=== PATIENT | male | born 1970 | race African-American/Black ===

== ENCOUNTER 2018-07-03 09:13 | Inpatient (IN) ==
[~2018-07-03 09:13] MED LIST: NS 2,000 ML ONE
[2018-07-03] MEDS ORDERED: NS 1,000 ML IV ONE (09:17)
[2018-07-03] MEDS ORDERED: SODIUM CHLORIDE 0.9% INJ ONE (09:18)
[2018-07-03] MEDS ORDERED: PROTONIX IV ONE (09:18)
[2018-07-03] MEDS ORDERED: PROTONIX 80 MG in NS 80 ML IV ONE (09:30)
[2018-07-03] MEDS ORDERED: PROTONIX 80 MG in NS 80 ML IV SCH (09:30)
[2018-07-03] MEDS ORDERED: SANDOSTATIN IV ONE (09:31)
--- NOTE | 2018-07-03 09:35 | PROVIDER DOCUMENTATION ---
This chart was entered by Wendy Jensen Scribe, acting as scribe for Christina Kincaid MD. HPI-Abdominal Pain/GI Problem - General Stated Complaint: VOMITING BLOOD Time Seen by Provider: 07/03/18 09:14 Source: patient Allergies/Adverse Reactions: Patient Allergies Allergy/AdvReac Type Severity Reaction Status Date / Time No Known Allergies Allergy Verified 07/03/18 09:26 Home Medications: Home Medication List Medication Instructions Recorded Confirmed Last Taken Type Unobtainable [Home Meds 07/03/18 07/03/18 Unknown History Unobtainable] - History of Present Illness-ABD Nature of Presenting Problems: Patient is a 48 year old male who presents to the ED via EMS for vomiting blood. Patient states he woke this morning feeling nauseated then vomited red blood 4 times. Patient states he does drink ETOH. Patient denies history of hepatitis. EMS states patient's friend stated patient had seizure like activity this mo rning. Patient denies history of seizures. Abdominal Pain Onset Location: reports: other (patient denies abdominal pain) Pain Radiation: reports: no radiation Quality of Pain: reports: none Severity in ED: reports: mild Onset/Duration: reports: this morning Timing: reports: still present Activities at Onset: reports: light activity Modifying Factors: improves with: nothing Associated Symptoms: reports: nausea, vomiting (red blood) # of Vomiting Episodes: 4 Emesis Description: reports: red blood Bruising or Bleeding Gums?: No Similar Symptoms Previously?: No Recently seen or treated by another doctor?: No Review of Systems - Adult - REVIEW OF SYSTEMS - ADULT Constitutional: reports: no symptoms reported Eyes: reports: no symptoms reported Ears, Nose, Mouth & Throat: reports: no symptoms reported Cardiovascular: reports: no symptoms reported Respiratory: reports: no symptoms reported Gastrointestinal: reports: hematemesis, nausea. denies: abdominal pain, diarrhea Genitourinary: reports: no symptoms reported Musculoskeletal: reports: no symptoms reported Integumentary: reports: no symptoms reported Neurological: reports: no symptoms reported Psychiatric: reports: no symptoms reported Endocrine: reports: no symptoms reported Hematologic/Lymphatic: reports: no symptoms reported Allergic/Immunologic: reports: no symptoms reported All Other Systems: Reviewed and Negative Past History - Adult - PAST MEDICAL HISTORY-ADULT Review of Records: reports: Nursing Assessment Review, Medications Reviewed, Social history reviewed & non-contributory. Major Childhood Illnesses: reports: denies history Cardiovascular: reports: HTN Respiratory: reports: denies history Gastrointestinal: reports: denies history Obstetrical/Gynecological: reports: denies history Genitourinary: reports: denies history Musculoskeletal: reports: denies history Neurological: reports: denies history Psychiatric: reports: denies history Endocrine/Immune: reports: denies history Other Conditions: reports: denies history - PRIOR SURGERIES/PROCEDURES Surgical/Procedure History: reports: none - IMMUNIZATION STATUS Childhood Immunizations: See Nurse Assessment Flu Vaccine: See Nurse Assessment - FAMILY HISTORY Family History: reviewed, not pertinent - SOCIAL HISTORY Smoking: denies Substance Use: alcohol Physical Exam-General - PHYSICAL EXAM-ADULT Initial Vital Signs Reviewed: Yes - CONSTITUTIONAL General Appearance: alert, mild distress - EYES Eyes: PERRL/EOMI, scleral icterus - HEAD, EARS, NOSE, MOUTH & THROAT HENMT: other (dry mucus membranes, no blood in mouth or posterior oropharynx) - NECK Neck: non-tender, full range of motion, supple - RESPIRATORY Respiratory: lungs clear, normal breath sounds, no pleuratic chest pain, no respiratory distress, no accessory muscle use - CARDIOVASCULAR Cardiovascular: normal peripheral pulses, regular rate, rhythm, no murmur - LYMPHATIC Lymphatic: no adenopathy - MUSCULOSKELETAL Extremity: normal range of motion, non-tender Peripheral Pulses: radial (R): 2+, radial (L): 2+ - SKIN Integumentary: normal turgor, warm/dry, jaundice - NEUROLOGIC Neurologic: grossly normal, no motor/sensory deficits - PSYCHIATRIC Psych/Mental Status: normal mood/affect, normal thought content, normal thought process, oriented x 3 Progress - PLAN OF CARE/RESULTS Progress/Plan/Lab Results: Vital Signs - 8 hr 07/03/18 09:13 Pulse Rate 107 H Respiratory Rate 22 Blood Pressure 134/56 O2 Sat by Pulse Oximetry 100 Orders Category Date Time Status Saline Loc NOW Care 07/03/18 09:17 Active CHEST-PORTABLE [RAD] Stat Exams 07/03/18 09:16 Ordered ALCOHOL BLOOD Stat Lab 07/03/18 09:15 Uncollected AMMONIA [CHEM] Stat Lab 07/03/18 09:16 Uncollected CBC WITH ELECTRONIC DIFF [HEME] Stat Lab 07/03/18 09:15 Uncollected COMPREHENSIVE METABOLIC PANEL [CHEM] Stat Lab 07/03/18 09:15 Uncollected HIV GENOTYPE [ARORA] Stat Lab 07/03/18 09:22 Uncollected LIPASE [CHEM] Stat Lab 07/03/18 09:16 Uncollected PT [PROTIME WITH INR] [COAG] Stat Lab 07/03/18 09:15 Uncollected TYPE & SCREEN [BBK] Stat Lab 07/03/18 09:[address] W/POSS RFLX CULT [URINALYSIS] Stat Lab 07/03/18 09:16 Uncollected URINE DRUG SCREEN PL Stat Lab 07/03/18 09:16 Uncollected 0.9% Sodium Chloride Inj [Ns] 1,000 ml Med 07/03/18 09:13 Discontinued .ROUTE As directed 0.9% Sodium Chloride Inj [Ns] 1,000 ml Med 07/03/18 09:17 Active IV 999 mls/hr Pantoprazole [Protonix] Med 07/03/18 09:18 Discontinued 40 mg IV NOW ONE Sodium Chloride 0.9% Med 07/03/18 09:18 Discontinued 10 ml INJ NOW ONE 0931 d/w Tere re HPI exam all work up pending, currently vss, rec drips, IVF, get started and send to [facility], he will be available for hospitalist admit 0958 pt vomiting BRB amount pending 1005 Mehta released pt, call out to hospitalist at [facility], spoke marli Rashid, says hospitalist at needs to see pt and call them, I am concerned about delays for transfer Mehta in the room, has put in transfer orders 1052 SBP in 80s asked RN to squeeze in 1 L NS rapidly, BB getting 2 units PRBC Result Diagrams: 07/03/18 09:40 07/03/18 09:40 - REASSESSMENT Reassessment #1 Time Reassessed: 09:56 Status: other (patient started vomiting red blood.) - XRAY 1 XRAY Study: Chest Impression: See EMR Report ( EXAM: CHEST-PORTABLE - 07/03/2018 HISTORY: vomiting blood TECHNIQUE: Portable chest COMPARISON: None. FINDINGS: Heart size is normal. The lungs appear clear. There is no pleural effusion or pneumothorax identified. IMPRESSION: No evidence of acute disease. Electronically signed by Richard Velazquez 07/03/2018 9:46 AM 07/03/18945 Interpreting Physician: Richard Velazquez MD Dictated Date/Time: 07/03/1846 cc: Christina Kincaid MD;) - CONSULTS/PCP/HOSPITALIST Notification #1 *Consult/PCP/Hospitalist*: Dr. Mehta Time Discussed: 10:02 Reason/Comments: Dr. Kincaid consulted with Dr. Mehta about patient. Consult Disposition: Will see in ED #2 Consult: Dr. Garcia Time Discussed: 09:31 Reason/Comments: Dr. Kincaid consulted with Dr. Garcia about patient. Departure - Departure Date of Disposition Decision: 07/03/18 Time of Disposition Decision: 10:08 DIAGNOSIS: Vomiting blood, Jaundice Disposition: ADMITTED INPATIENT 09 Certified Medical Emergency: Emergent Condition: Critical Referrals and Follow-Ups: None,PCP [Primary Care Provider] - - Critical Care Note This patient required my direct & personal management of CC.: Yes Total Time (mins): 40 Critical Care Statement: This patient required my direct personal management to treat or rule out processes, the absence of which, could potentiallly result in sudden, clinically significant life or limb threatening deterioration. Attestation - Physician/ GISELA Attestation The physician spent face to face time with patient:: Yes Advanced Practice Provider documentation review:: Supervising physician onsite and consulted in the evaluation and care of this patient. The physician did have a face to face encounter with the patient. This chart was documented by the indicated scribe, (Wendy Jensen Scribe) and accurately reflects the services I performed and decisions made by me, Christina Kincaid MD, as attested by the provider's signature.
--- NOTE | 2018-07-03 09:49 | Diag Imaging Result Doc PS360 ---
EXAM: CHEST-PORTABLE - 07/03/2018 HISTORY: vomiting blood TECHNIQUE: Portable chest COMPARISON: None. FINDINGS: Heart size is normal. The lungs appear clear. There is no pleural effusion or pneumothorax identified. IMPRESSION: No evidence of acute disease. Electronically signed by Richard Velazquez 07/03/2018 9:46 AM
[2018-07-03 10:08] LABS: ALBUMIN 2.6 g/dL (3.5-5.0); CALCIUM 7.8 mg/dL (8.8-10.2); CREATININE 1.3 mg/dL (0.7-1.2); POTASSIUM 3.2 mmol/L (3.5-5.1); TOTAL BILIRUBIN 8.9 mg/dL (0.20-1.00); TOTAL PROTEIN 6.4 g/dL (6.3-8.3)
[2018-07-03 10:11] LABS: BASO# 0.03 X1000 (0.0-0.2); BASO% 0.2 % (0.0-0.8); EOS# 0.01 X1000 (0.0-0.7); EOS% 0.1 % (0.0-10.0); HEMATOCRIT 20.3 % (42.0-52.0); HEMOGLOBIN 7.1 g/dL (14.0-18.0); IMM GRAN# 0.08 X1000 (0.0-0.04); IMM GRAN% 0.5 % (0.0-0.5); LYMPH# 1.72 X1000 (1.2-3.4); LYMPH% 10.8 % (20.5-51.1); MCH 32.9 PG (27-31); MONO# 0.75 X1000 (0.11-0.59); MONO% 4.7 % (1.7-9.3); MPV 11.5 FL (7.4-10.4); NEUT# 13.29 X1000 (1.4-6.5); NEUT% 83.7 % (42.2-75.2); PLT 75 X1000 (130-400); RBC 2.16 XMIL (4.7-6.1); RDW 17.8 % (11.5-14.5); WBC 15.88 X1000 (4.8-10.8)
[2018-07-03] MEDS ORDERED: SANDOSTATIN 500 MICROGM in D5W 100 ML IV SCH (10:15)
[2018-07-03] MEDS ORDERED: M.V.I.-12 10 ML, FOLIC ACID 1 MG, MAGNESIUM SULFATE 1 GM, THIAMINE 100 MG in NS 1,000 ML IV SCH (10:15)
[2018-07-03] MEDS ORDERED: NS 1,000 ML IV SCH (10:15)
[2018-07-03 10:24] LABS: INR 1.97; PROTIME 23.4 Seconds (11.0-16.0)
[2018-07-03] MEDS ORDERED: ROCEPHIN 1 GM in NS 50 ML IV ONE (10:26)
[2018-07-03] MEDS ORDERED: LR 1,000 ML IV ONE (10:26)
[2018-07-03] MEDS ORDERED: ATIVAN IV PRN (10:38)
[2018-07-03] MEDS ORDERED: ZOFRAN IV ONE (10:53)
--- NOTE | 2018-07-03 11:36 | HISTORY AND PHYSICAL ---
ADDENDUM: This is a history and physical addendum. The patient seen and examined by me [id number], all the laboratory, vital signs and images were reviewed. He presented with upper GI bleed, he has been vomiting blood, it looks like he is an alcoholic, I am not sure if he has also a history of hepatitis. I will ask for hepatitis panel. Apparently, also this patient had some seizurelike activity this morning, but the patient denies any history of seizure. At this moment, this patient is completely alert and oriented x3. He is following commands, he is having generalized shakiness but he states that he is cold. Since this patient has been having hematemesis, we need to transfer this patient to [facility] so he can be evaluated and scoped by Gastroenterology Department. He has been getting Protonix drip, IV fluids. We asked for 2 units of blood as well. Vital signs are stable except for mild tachycardia. He is not complaining of abdominal pain at this moment but at the beginning, he was complaining of right upper quadrant pain. He has jaundice, icteric sclerae. We will monitor this patient closely. Since he is likely an alcoholic, we will start this patient on the banana bag and any agitation or alcohol withdrawal symptoms, we have placed this patient on Ativan as needed, likely this patient will need to be on Librium after scoping the patient. His alcohol level is still a little bit high at 33. I agree with the rest of the nurse practitioner's assessment and plan. cc: MD Marcelino Swartz MD
--- NOTE | 2018-07-03 11:44 | HISTORY AND PHYSICAL ---
PRIMARY CARE PHYSICIAN: . CHIEF COMPLAINT: Vomiting blood that was bright red 4 times that began this morning. HISTORY OF PRESENTING ILLNESS: This is a 48-year-old male who presents to [facility] ER with complaints of vomiting bright red blood 4 times this morning. He states that he only drank 2 small [place] type Lyme A Jen's daily. When he arrived to the emergency room, he had a plasma serum alcohol level of 33, stating he last drank last night. His total bilirubin is 8.90, AST of 108, BUN of 6, but a creatinine of 1.3. His hemoglobin and hematocrit were 7.1 and 20.3. White blood cell count was 15.88, but that is most likely reactive so he will be admitted to the [facility] for further evaluation and treatment. PAST MEDICAL HISTORY: Hypertension. PAST SURGICAL HISTORY: None. FAMILY HISTORY: Reviewed and noncontributory. SOCIAL HISTORY: Currently lives with family. Denies any tobacco use. He states he only drinks 2 [place] margaritas daily in the small cans. No illicit drug use. ALLERGIES: He has no known drug allergies. HOME MEDICATIONS: He does not apparently take any medications on a routine basis, but we will update and confirm that. I will place an order for nursing to update and confirm home medications. LABORATORY DATA: White blood cell count of 15.88, hemoglobin 7.1, hematocrit 20.3, and platelets 75,000. Sodium 138, potassium 3.2, chloride 99, CO2 15, BUN of 6, creatinine 1.3, glucose was 190, total bilirubin of 8.90, AST of 108, ALT 31, and alkaline phosphatase 116. Ammonia was 72. Lipase 43. Serum alcohol level was 33. Chest x-ray showed no evidence of acute disease. REVIEW OF SYSTEMS: He denied any fever or chills, but he was noted to be shaking uncontrollably. Denied any blurred vision, dizziness, chest pain, coughing, or shortness of breath. He was positive for vomiting bright red blood 4 times, and has done at one time in the emergency room that has been visualized by staff. Abdominal pain. Denied any burning or hurting with urination. PHYSICAL EXAMINATION: VITAL SIGNS: On arrival, he had a temperature of 97.4 degrees, pulse 111, respirations 22, blood pressure 134/56 and saturating 100% on room air. GENERAL: This is a 48-year-old male who is lying in the bed and answers questions appropriately. HEENT: Normocephalic, atraumatic. Normal ENT inspection. Oropharynx with dry mucous membranes. EYES: Sclera icterus. Extraocular movements are intact. NECK: Normal inspection. Normal range of motion. LUNGS: Clear to auscultation bilaterally with equal lung expansion and chest wall movement. HEART: Regular rate and rhythm. No murmurs, rubs, or gallops. ABDOMEN: Soft, but there is tenderness to palpation. Bowel sounds are present x4 quadrants. MUSCULOSKELETAL: He has 5/5 strength x4 extremities. NEUROLOGICAL: The cranial nerves 2-12 appear grossly intact. ASSESSMENT: 1. Gastrointestinal bleed. 2. Anemia secondary to #1. 3. Alcoholic hepatitis. 4. Leukocytosis most likely reactive. 5. Hypokalemia. 6. Acute kidney injury. 7. Ethanol abuse. PLAN: He will be transferred to the [facility]. We will transfuse 2 units of packed red blood cells now. He was given a dose of Sandostatin 50 mcg IV x1 in the emergency room. He was given 40 mg IV x1 of Protonix, and is now on a Protonix drip. We are giving him Ativan 1 mg IV q.2 hours p.r.n. He will have a banana bag of fluids daily. Then, he will have normal saline 75 mL an hour. Rocephin 1 mg IV q.24 will be given, and he did receive that 1st dose in the emergency room. We will consult GI and do serial hemoglobin and hematocrit q.4 hours. Recheck a CBC, CMP, hepatitis profile in the morning. We have an HIV, urine drug screen and basic urinalysis pending. Blood cultures x2 have been obtained and results are pending. Further orders after seen by attending, and by the [employer] consultant. Dictated by DAILY Chan for Antwan Macedo MD cc: DAILY Chan MD Clement Okinedo, MD Dr. Gill
[2018-07-03 11:55] LABS: BLOOD TYPE ARTERIAL; SAMPLE BLOOD
[2018-07-03 11:59] LABS: BE -14.4 mmoll (-3.0-3.0); HCO3-(ACT) 13.7 mmoll (20.0-26.0); PCO2(98.6) 27 mmHg (35-45); PO2(98.6) 132 mmHg (60-100); pH(98.6) 7.24 (7.35-7.45)
[2018-07-03 12:00] LABS: METHB 1.3 % (0.0-1.5); O2HB 96.5 % (95.0-99.0); SAO2 100.1 % (95.0-100.0); THB 7.7 g/dL (11.5-17.4)
[2018-07-03 12:01] LABS: ALLEN TEST NO; MODALITY NRB; O2(CT) 10.7 mL/dL (15.0-23.0)
[2018-07-03] MEDS ORDERED: ZOFRAN IV PRN (12:25)
[2018-07-03] MEDS ORDERED: VITAMIN K 10 MG in NS 50 ML IV ONE (12:54)
[2018-07-03] MEDS: SANDOSTATIN 500 MICROGM in D5W 100 ML IV SCH (13:42)
[2018-07-03] MEDS: NS 1,000 ML IV SCH (14:10)
[2018-07-03] MEDS: PROTONIX 80 MG in NS 80 ML IV SCH (14:52)
[2018-07-03 14:57] LABS: URINE SOURCE CLEAN CATCH
[2018-07-03 15:00] LABS: BILIRUBIN URINE MODERATE (NEGATIVE); BLOOD URINE SMALL (NEGATIVE); COLOR YELLOW; GLUCOSE URINE NEGATIVE (NEGATIVE); KETONE URINE TRACE mg/dL (NEGATIVE); LEUKOCYTES URINE NEGATIVE (NEGATIVE); NITRITE URINE NEGATIVE (NEGATIVE); PH URINE 5.5; PROTEIN URINE 30 mg/dL (NEGATIVE); SP GRAVITY URINE 1.016; TURBIDITY URINE TURBID (CLEAR); UROBILINOGEN URINE 2 mg/dL (NORMAL)
[2018-07-03 15:04] LABS: UR EPITHELIAL CELLS <10 /HPF (<10); URINE BACTERIA NEGATIVE /HPF
[2018-07-03 15:10] LABS: UR AMPHETAMINES QUAL NONE DETECTED (NONE DETECT); UR BARBITUATES QUAL NONE DETECTED (NONE DETECT); UR BENZODIAZEPIN QUAL NONE DETECTED (NONE DETECT); UR CANNABINOIDS QUAL NONE DETECTED (NONE DETECT); UR COCAINE QUAL NONE DETECTED (NONE DETECT); UR METHADONE QUAL NONE DETECTED (NONE DETECT); UR OPIATES QUAL NONE DETECTED (NONE DETECT); UR OXYCODONE QUAL NONE DETECTED (NONE DETECT); UR PCP QUAL NONE DETECTED (NONE DETECT)
[2018-07-03 15:14] LABS: URINE CASTS EPITHELIAL PRESENT; URINE CRYSTALS NONE SEEN; URINE YEAST NONE SEEN
[2018-07-03 15:15] LABS: URINE SMALL ROUND CELLS RENAL PRESENT
[2018-07-03 16:56] LABS: HEMATOCRIT 23.2 % (42.0-52.0); HEMOGLOBIN 7.8 g/dL (14.0-18.0)
--- NOTE | 2018-07-03 17:24 | GASTROENTEROLOGY CONSULTATION ---
DATE: 07/03/2018 REQUESTING PHYSICIAN: Dr. Macedo. PRIMARY DOCTOR: Dr. Lolita Gill. REASON FOR CONSULTATION: Vomiting blood x4 this morning. HISTORY OF PRESENT ILLNESS: Mr. Costello is 48-year-old male who was admitted to the [facility] ER this morning for vomiting blood. The patient woke up this morning and felt sick to his stomach and threw up blood at home 4 times. He presented to the ER at [facility] where he was noted to have low hemoglobin. The patient admits to drinking 2 nahid drinks a day. He also has been drinking heavily at home for many years. His father and his are present at bedside during the interview in the ICU bed 2. Being in the ER he had thrown up blood once. There was also questionable seizure activity in the ER at [facility]. He is on IV Ativan for withdrawal. According to the patient, he has never had liver problems in the past. He denies having any previous GI bleeding or any ulcers before. In the initial workup he was noted to have a hematocrit of 20% and high INR and jaundice and leukocytosis and lactic acidosis. He is receiving blood transfusion and he is scheduled to receive FFPs and IV fluids. He is on Protonix and octreotide drip. We are trying to resuscitate him at this time and will watch him closely for withdrawal. I have discussed the options of doing EGD either today or tomorrow, depending on his overall clinical status. Patient denies any blood in the stools. He denies any abdominal pain. He feels a little anxious. He denies any nose bleeding or gum bleeding or any blood in the urine. PAST MEDICAL HISTORY: Hypertension, alcoholism. PAST SURGICAL HISTORY: None. FAMILY HISTORY: Denies any family history of liver disease. SOCIAL HISTORY: He lives with family. He is . His is present at bedside. Denies any history of drug abuse. Denies any tobacco abuse. He drinks 2 margaritas daily in small cans. He was drinking heavily in the past and has so for many years. He could not quantify the duration of time. ALLERGIES: No known drug allergies. MEDICATIONS IN HOSPITAL: Normal saline 75 mL/h, ceftriaxone IV once daily, Ativan 1 mg IV q.2 hours, multivitamin once daily, dextrose 5%, octreotide 10 ml/h, Zofran 4 mg IV q.4 hours, Protonix drip, vitamin K given once 10 mg. He is getting 1st unit of blood transfusion. REVIEW OF SYSTEMS: Denies any fevers, rigors, chills, chest pain, shortness of breath, dyspnea. Denies any abdominal pain or blood in the stools or black stools. 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 Denies any major arthritis or neurologic complaints. He does feel anxious. PHYSICAL EXAMINATION: Vital signs: Temperature 98.7 degrees, pulse rate of 107, respiratory rate 24, blood pressure 152/72, saturating 99% on room air. Body weight of 141 pounds 4 ounces, BMI 20.9 kg/m2. General appearance: Moderately built, moderately nourished, lying in bed, in no acute distress. HEENT: Pale conjunctivae. Icteric sclerae. Pupils equal, reactive to light and accommodation. Neck: Supple. Abdomen: Soft, nontender, nondistended. No guarding or rebound. Extremities: No cyanosis, clubbing, edema. Neurologic: He is alert, awake, and oriented to time, place, and person. He appears a little anxious. LABS: Hemoglobin and hematocrit is 7.1 and 20.3, white count of 15.8 platelet count of 75,000, MCV of 94. INR 1.97, PT of 23.4. ABG showing pH of 7.24, pCO2 27, PO2 132, and lactic acid of 13.8; this is on FiO2 100%. Sodium 138, potassium 3.2, chloride 99, bicarb of 15, anion gap 24, BUN of 6, creatinine 1.3, glucose of 190, calcium is 7.8, total bilirubin is 8.9, AST 108, ALT 31, alkaline phosphatase 160, total protein is 6.4, albumin of 2.6. Ammonia of 72, lipase of 43, lactate of 7.4. Urinalysis showing moderate bilirubin, trace blood, trace ketones, 10-20 red cells. Toxicology screen negative. Plasma alcohol level was 33. Chest x-ray was done this morning which showed no evidence of any acute disease. IMPRESSIONS: 1. Hematemesis. 2. Jaundice. 3. Elevated liver enzymes. 4. Anemia. 5. Thrombocytopenia. 6. Coagulopathy. 7. Lactic acidosis. RECOMMENDATIONS: 1. We will keep the patient NPO except medications and ice chips. We will keep him on Protonix drip. We will keep him on octreotide drip. We will type and cross and transfuse to hematocrit more than 23%. He is scheduled to get 2 units of FFP. He has already gotten 1 of the vitamin K. 2. We will check hepatitis panel and HIV. 3. He will continue on IV fluids. He is on IV Ativan every 2 hours for withdrawal. We will resuscitate him and we will keep a close eye on his blood counts. We will schedule him for EGD in the morning with Dr. Milton. The risks, benefits, indications, alternatives of the procedure were discussed with the patient and patient's family and all questions were answered. 4. The patient also counseled to quit drinking alcohol completely. Further recommendations pending the hospital course. I discussed the plan of care with the nursing staff. I also spoke with the hospitalist team. 5. We will follow along. Please call us with any further questions. cc: MD Dr. Milo Luna
[2018-07-03 20:36] LABS: HEMATOCRIT 21.1 % (42.0-52.0); HEMOGLOBIN 7.1 g/dL (14.0-18.0)
[2018-07-03] MEDS ORDERED: BENADRYL IV ONE (21:18)
[2018-07-03] MEDS ORDERED: TYLENOL PO ONE (21:19)
[2018-07-03] MEDS ORDERED: NS 250 ML ONE (21:36)
[2018-07-04] MEDS: SANDOSTATIN 500 MICROGM in D5W 100 ML IV SCH ×3 (01:56→20:33)
[2018-07-04] MEDS: PROTONIX 80 MG in NS 80 ML IV SCH ×3 (01:56→20:33)
[2018-07-04] MEDS: NS 1,000 ML IV SCH ×2 (02:27→18:15)
[2018-07-04 05:44] LABS: BASO# 0.02 X1000 (0.0-0.2); BASO% 0.2 % (0.0-0.8); EOS# 0.02 X1000 (0.0-0.7); EOS% 0.2 % (0.0-10.0); HEMATOCRIT 24.4 % (42.0-52.0); HEMOGLOBIN 8.4 g/dL (14.0-18.0); IMM GRAN# 0.02 X1000 (0.0-0.04); IMM GRAN% 0.2 % (0.0-0.5); LYMPH# 1.68 X1000 (1.2-3.4); LYMPH% 16.3 % (20.5-51.1); MCH 30.8 PG (27-31); MCHC 34.4 g/dL (33-37); MCV 89.4 FL (81-99); MONO# 0.55 X1000 (0.11-0.59); MONO% 5.3 % (1.7-9.3); MPV 11.7 FL (7.4-10.4); NEUT# 8.04 X1000 (1.4-6.5); NEUT% 77.8 % (42.2-75.2); PLT 41 X1000 (130-400); RBC 2.73 XMIL (4.7-6.1); RDW 15.2 % (11.5-14.5); WBC 10.33 X1000 (4.8-10.8)
[2018-07-04] MEDS: ROCEPHIN 1 GM in NS 50 ML IV SCH (05:53)
[2018-07-04] MEDS ORDERED: ROCEPHIN 1 GM in NS 50 ML IV SCH (06:00)
[2018-07-04 06:30] LABS: CALCIUM 6.9 mg/dL (8.8-10.2)
[2018-07-04 06:31] LABS: AGAP 11; ALB/GLOB RATIO 0.9; ALBUMIN 2.6 g/dL (3.5-5.0); ALKALINE PHOSPHATASE 83 U/L (32-122); BUN 14 mg/dL (8-22); CHLORIDE 107 mmol/L (98-107); COSMO 280; CREATININE 1.1 mg/dL (0.7-1.2); ESTIMATED GFR > 60; GLUCOSE 108 mg/dL (70-104); GOT 204 U/L (10-34); GPT 56 U/L (10-44); MAGNESIUM 1.3 mg/dL (1.5-2.7); PHOSPHORUS 2.4 mg/dL (2.7-4.5); POTASSIUM 4.1 mmol/L (3.5-5.1); SODIUM 140 mmol/L (136-145); TCO2 22 mmol/L (25-35); TOTAL PROTEIN 5.6 g/dL (6.3-8.3)
[2018-07-04] MEDS ORDERED: CALCIUM GLUCONATE 2 GM in NS 100 ML IV ONE (06:36)
[2018-07-04] MEDS ORDERED: DIPRIVAN 1% ONE ×2 (06:48→07:35)
[2018-07-04] MEDS ORDERED: MAGNESIUM SULFATE 2 GM/S.W.I. 2 GM/50 ML IVPB IV ONE (07:15)
[2018-07-04] MEDS ORDERED: SODIUM PHOSPHATE 35 MMOL in NS 250 ML IV ONE (07:15)
[2018-07-04] MEDS ORDERED: FENTANYL ONE (07:34)
--- NOTE | 2018-07-04 07:43 | PROGRESS NOTE ---
DATE: 07/04/2018 SUBJECTIVE: The patient reports no more episodes of vomiting blood or black stools or bloody stools. OBJECTIVE: Vital Signs: Temperature 99.2 degrees, heart rate 82, respiratory rate 14, blood pressure 143/82, O2 saturation 97% on room air. General: This is a 48-year-old male, lying in bed, in no acute distress. HEENT: Head is normocephalic, atraumatic. Mucous membranes dry. Neck: No JVD noted. No carotid bruits. No lymphadenopathy. No thyromegaly. Cardiovascular: S1, S2 heard. No murmurs, gallops, or rubs. Regular rate and rhythm. Respiratory: Clear bilaterally to auscultation. No work of breathing. Not using accessory muscles. Abdomen: Soft. A little bit tender to palpation in the epigastric area. Bowel sounds present. No organomegaly. Extremities: No clubbing, cyanosis, or edema. Peripheral pulses present in both legs. Neurological: Patient is alert and oriented x3. Moves 4 extremities. Cranial nerves 2-12 grossly normal. LABORATORY DATA: White cell count 10.33, hemoglobin 8.4, hematocrit 24.4, platelets 41,000. BMP shows calcium 6.9. AST 204, ALT 53, magnesium 1.3 and phosphorus 2.4. ASSESSMENT AND PLAN: 1. Gastrointestinal bleeding. That is the reason why this patient was transferred over here. He was vomiting blood. So far he has received 4 units of PRBCs. His hemoglobin is 8.4 today. We will continue to check hemoglobin and hematocrit every 6 hours. He has been seen by GI and he is going to be scoped today. We will see what this EGD shows. We appreciate GI input. 2. Anemia secondary to condition 1. After 4 units of blood, hemoglobin is much more stable. We will continue to monitor. 3. Alcohol abuse. The patient is an alcoholic. He used to drink liquor and now he is drinking once in a while margaritas and beer. In any case, he is a high risk for alcohol withdrawal. So after the procedure is done, we will start this patient on Librium. 4. Acute kidney injury. After fluids have been administered to him, the renal function is back to normal. 5. Coagulopathy secondary to alcoholic liver disease. INR was elevated yesterday. We are going to check INR daily. 6. Thrombocytopenia related to alcohol abuse. There are no signs of bleeding at this time. So, no need for platelet transfusion at this time. 7. Possible portal hypertension. Patient has been started on Sandostatin and also patient is on banana bag. We will continue with the same management. 8. Electrolyte imbalance. Magnesium and phosphorus are low, will replenish them today. cc: Melchor Lion MD
[2018-07-04] MEDS: INDERAL PO SCH ×3 (08:39→18:00)
[2018-07-04] MEDS: M.V.I.-12 10 ML, FOLIC ACID 1 MG, MAGNESIUM SULFATE 1 GM, THIAMINE 100 MG in NS 1,000 ML IV SCH (08:39)
--- NOTE | 2018-07-04 08:40 | OPERATIVE NOTE ---
PROCEDURE DATE: 07/04/2018 PROCEDURE: Upper GI endoscopy. PROVIDER: Emeka Milton MD. INDICATIONS: Hematemesis, cirrhosis. MEDICATIONS: Monitored anesthesia care. PROCEDURE: Prior to the procedure, a history and physical was performed and the patient's medication allergies were reviewed. The patient's tolerance to previous anesthesia was also reviewed. The risks and benefits of procedure and sedation options and risks were discussed with the patient. All questions were answered. Informed consent was obtained. After reviewing the risks and benefits, the patient was deemed in satisfactory condition to undergo the procedure. The endoscope was passed under direct visualization. Throughout the procedure, the patient's blood pressure, pulse and oxygen saturations were monitored continuously. Endoscope was advanced through the mouth and to the second part of the duodenum. The upper GI endoscopy was accomplished without difficulty. The patient tolerated the procedure well. COMPLICATIONS: No immediate complications. ESTIMATED BLOOD LOSS: Minimal. FINDINGS: There were 4 columns of grade 3-4 esophageal varices found in the distal esophagus with red livan signs. Small hiatal hernia. In the stomach there was mild oozing portal hypertensive gastropathy. The duodenum was normal. Retroflexion in the stomach was negative for gastric varices. Four bands were deployed to treat the esophageal varices without any bleeding at the end of the procedure. IMPRESSION: - Esophageal varices with stigmata of recent bleeding, status post banding. - Small hiatal hernia. - Portal hypertensive gastropathy. RECOMMENDATIONS: - Return patient to the ICU for continued monitoring. - Start clear liquid diet. - Start propranolol 10 mg t.i.d. and titrate for heart rate of 55 to 60. - Continue PPI - Continue antibiotics for a total of 5 days for SBP prophylaxis, can transition to oral 3rd generation cephalosporin. - The patient will need to have repeat outpatient EGD per banding protocol in 2 to 3 weeks. The findings were discussed with the patient's family. We will follow with you. Please call with any questions or concerns. [facility] CAMPUSValorie
[2018-07-04] MEDS ORDERED: INDERAL PO SCH (09:00)
[2018-07-04 09:10] LABS: INR 1.69; PROTIME 21.1 Seconds (11.0-16.0)
[2018-07-05] MEDS: ATIVAN IV PRN ×4 (01:46→21:09)
[2018-07-05] MEDS: SANDOSTATIN 500 MICROGM in D5W 100 ML IV SCH ×2 (02:51→13:44)
[2018-07-05 06:11] LABS: HEMOGLOBIN 8.7 g/dL (14.0-18.0); MCH 31.8 PG (27-31); MCHC 34.8 g/dL (33-37); MCV 91.2 FL (81-99); MPV 12.2 FL (7.4-10.4); RBC 2.74 XMIL (4.7-6.1); RDW 16.3 % (11.5-14.5); WBC 8.38 X1000 (4.8-10.8)
[2018-07-05 06:16] LABS: INR 1.6; PROTIME 20.3 Seconds (11.0-16.0)
[2018-07-05] MEDS: NS 1,000 ML IV SCH ×2 (06:20→20:02)
[2018-07-05] MEDS: APRESOLINE IV PRN ×2 (06:20→23:36)
[2018-07-05] MEDS: PROTONIX 80 MG in NS 80 ML IV SCH ×2 (06:21→16:50)
[2018-07-05] MEDS: ROCEPHIN 1 GM in NS 50 ML IV SCH (06:21)
[2018-07-05 06:26] LABS: AGAP 8; ALB/GLOB RATIO 0.9; ALBUMIN 2.7 g/dL (3.5-5.0); ALKALINE PHOSPHATASE 88 U/L (32-122); BUN 11 mg/dL (8-22); CALCIUM 7.5 mg/dL (8.8-10.2); CHLORIDE 105 mmol/L (98-107); COSMO 273; CREATININE 0.8 mg/dL (0.7-1.2); ESTIMATED GFR > 60; GLUCOSE 135 mg/dL (70-104); GOT 150 U/L (10-34); GPT 51 U/L (10-44); POTASSIUM 3.9 mmol/L (3.5-5.1); SODIUM 136 mmol/L (136-145); TCO2 23 mmol/L (25-35); TOTAL BILIRUBIN 10.35 mg/dL (0.20-1.00); TOTAL PROTEIN 5.8 g/dL (6.3-8.3)
[2018-07-05 08:25] LABS: MAGNESIUM 1.8 mg/dL (1.5-2.7); PHOSPHORUS 1.8 mg/dL (2.7-4.5)
[2018-07-05] MEDS ORDERED: SODIUM PHOSPHATE 35 MMOL in NS 250 ML IV ONE (08:39)
--- NOTE | 2018-07-05 09:05 | PROGRESS NOTE ---
DATE: 07/05/2018 SUBJECTIVE: Patient reports feeling fine. No more episodes of vomiting blood or black stools or bloody stools. As per nursing staff, he had been feeling jittery last afternoon and night but today he is feeling much better. OBJECTIVE: Vital Signs: Temperature 99.1 degrees, heart rate 86, respiratory 15, blood pressure 179/100, O2 saturation 95% on room air. General: This is a chronically ill-appearing, 47-year- old male, lying in bed, in no acute distress. HEENT: Head is normocephalic, atraumatic. Mucous membranes dry. Neck: No JVD noted. No carotid bruits. No lymphadenopathy. No thyromegaly. Cardiovascular: S1, S2 heard. No murmurs, gallops, or rubs. Regular rate and rhythm. Respiratory: Clear bilaterally to auscultation. No work of breathing or using accessory muscles. Abdomen: Soft, a little bit tender to palpation in the epigastric area. Bowel sounds present. No organomegaly. Extremities: No clubbing, cyanosis, or edema. Peripheral pulses present in both legs. Neurological: Patient alert and oriented x3. Moves 4 extremities. LABORATORY DATA: White cell count is 8.38, hemoglobin 8.7, hematocrit 25.0, platelets 54,000. INR 1.6. BMP shows normal renal function with glucose 135 and calcium 7.5, phosphorus 1.8, total bilirubin 10.35. ASSESSMENT AND PLAN: 1. Gastrointestinal bleeding secondary to esophageal varices. Clinically, this patient is hemodynamically stable. No more signs of bleeding. The EGD yesterday showed 4 columns of grade 3-4 esophageal varices. There was mild oozing there. There was also portal hypertensive gastropathy. The patient underwent banding, and as mentioned before, no more signs of bleeding. Gastroenterology has been consulted, Dr. Milton's help appreciated. The patient has been started on propranolol for portal hypertension. We will continue with same management. 2. Anemia of blood loss. After 4 units of blood, hemoglobin is stable. We will continue to monitor CBC. 3. Hypertension. Blood pressure is getting higher in the range of 170s and 180s systolic blood pressure, so we will start amlodipine 5 mg p.o. q.12 hours. 4. Alcohol abuse. Patient is an alcoholic. The patient was reported to feel jittery, so at this point we will start Librium 50 mg p.o. q.8 hours and Ativan p.r.n. 5. Acute kidney injury, resolved. 6. Coagulopathy secondary to alcoholic liver disease. INR is still very high secondary to alcoholic liver disease. We will continue to check INR daily. 7. Thrombocytopenia related to alcohol abuse. Platelets are still low although no signs of bleeding. We will continue to monitor this patient closely. 8. Portal hypertension. As mentioned before, patient has been started on propranolol. We will continue with the same medication. 9. Hypophosphatemia. We are going to replenish phosphorus today. 10. Disposition. We will continue to monitor this patient in [facility] for alcohol withdrawal. cc: Melchor Lion MD
[2018-07-05] MEDS: LIBRIUM PO SCH ×2 (09:14→16:28)
[2018-07-05] MEDS: INDERAL PO SCH ×3 (09:14→16:28)
[2018-07-05] MEDS: NORVASC PO SCH ×2 (09:14→20:02)
[2018-07-05] MEDS: M.V.I.-12 10 ML, FOLIC ACID 1 MG, MAGNESIUM SULFATE 1 GM, THIAMINE 100 MG in NS 1,000 ML IV SCH (09:15)
[2018-07-05 13:14] LABS: HEPATITIS PROFILE ACUTE SEE COMMENTS
--- NOTE | 2018-07-05 22:51 | PROVIDER PROGRESS NOTE ---
Progress Note SUBJECTIVE: Patient noted to be agitated overnight. This morning, patient denies any complaints except some anxiousness. No N/V/F, hematemesis, abdominal pain, CP, SOB. He reports some melena. Tolerating diet. OBJECTIVE Last Vital Signs Temp 98.5 F 07/05/18 20:00 Pulse 70 07/05/18 20:00 Resp 20 07/05/18 20:00 BP 161/111 07/05/18 20:00 Pulse Ox 98 07/05/18 20:00 Height 5 ft 9 in Weight 160 lb 3 oz GEN: awake, alert, NAD HEENT: icterus, MMM NECK: supple, no jvd CV: RRR, no murmurs PULM: CTAB, no wheezing ABD: soft NT/ND, NABS EXT: no cce SKIN: juandiced NEURO: nonfocal; no asterixis LABS: 07/05/18 07/05/18 07/05/18 05:02 05:02 05:02 WBC 8.38 Hgb 8.7 L Plt Count 54 L D INR 1.60 Sodium 136 Potassium 3.9 Chloride 105 Carbon Dioxide 23 L BUN 11 Creatinine 0.8 Glucose 135 H Calcium 7.5 L Phosphorus 1.8L Magnesium 1.8 Total Bilirubin 10.35 H AST 150 H ALT 51 H Total Protein 5.8 L Albumin 2.7 L EGD 07/04 IMPRESSION: - Esophageal varices with stigmata of recent bleeding, status post banding. - Small hiatal hernia. - Oozing portal hypertensive gastropathy. Mr. Harley Costello is a 48 year old man who presented with decompensated ETOH cirrhosis with alcoholic hepatitis and bleeding varices s/p EVL on 07/04. EGD also notable for oozing PHG and small hiatal hernia. Overnight, he was noted to be a little agitated likely from ETOH withdrawal. Currently, he appears at baseline without signs of hepatic encephalopathy. His bilirubin continues to climb. BCx2 NGTD. Acute hepatitis panel was negative. #Bleeding esophageal varices: s/p 4 units pRBCs/FFP and EGD with EVLx4 - stop octreotide drip - cont propranolol 10mg TID; titrate for HR 55-60 - continue CTX for total of 5 days for SBP ppx - repeat EGD in 2-3 as outpatient per banding protocol #Decompensated ETOH cirrhosis: MELD-Na 23; CP-B9 - Cirrhosis: alcohol-related; hep panel neg; trend LFTs, INR daily - Ascites: none on exam; will check US; low NA diet - HCC screening: obtaining US - EV: as above - IMM: will eventually need HBV/HAV IgG checked as outpatient - OLT: not a candidate given recent ETOH use #Alcoholic hepatitis: DF 47; not a candidate for steroids given GI bleed; creatinine WNL; on MVI; CIWA #PHG: transition PPI drip to PO once daily #Thrombocytopenia: 54K today; no overt bleeding #Anemia: from above; on MVI Will follow with you. Please call with questions
[2018-07-05] MEDS: PHENOBARBITAL IV PRN (23:36)
[2018-07-06] MEDS: ATIVAN IV PRN ×3 (00:58→14:48)
[2018-07-06] MEDS: LIBRIUM PO SCH ×3 (04:14→18:03)
[2018-07-06 04:38] LABS: URINE SOURCE CATH
[2018-07-06 04:42] LABS: BILIRUBIN URINE NEGATIVE (NEGATIVE); BLOOD URINE SMALL (NEGATIVE); COLOR YELLOW; GLUCOSE URINE NEGATIVE (NEGATIVE); KETONE URINE NEGATIVE (NEGATIVE); LEUKOCYTES URINE NEGATIVE (NEGATIVE); NITRITE URINE NEGATIVE (NEGATIVE); PH URINE 7.5; PROTEIN URINE NEGATIVE (NEGATIVE); TURBIDITY URINE CLEAR (CLEAR); UROBILINOGEN URINE NORMAL (NORMAL)
[2018-07-06 04:44] LABS: UR EPITHELIAL CELLS <10 /HPF (<10); URINE BACTERIA NEGATIVE /HPF; URINE RBC <10 /HPF (<10); URINE WBC <10 /HPF (<10)
[2018-07-06 05:32] LABS: MCH 31.6 PG (27-31); MCHC 34.6 g/dL (33-37); MCV 91.2 FL (81-99); MPV 11.4 FL (7.4-10.4); RBC 2.85 XMIL (4.7-6.1); WBC 7.93 X1000 (4.8-10.8)
[2018-07-06 06:03] LABS: AGAP 11; ALB/GLOB RATIO 0.8; ALBUMIN 2.9 g/dL (3.5-5.0); ALKALINE PHOSPHATASE 96 U/L (32-122); BUN 6 mg/dL (8-22); CHLORIDE 101 mmol/L (98-107); COSMO 269; CREATININE 0.7 mg/dL (0.7-1.2); ESTIMATED GFR > 60; GLUCOSE 97 mg/dL (70-104); GOT 143 U/L (10-34); GPT 54 U/L (10-44); POTASSIUM 3.3 mmol/L (3.5-5.1); SODIUM 136 mmol/L (136-145); TCO2 24 mmol/L (25-35); TOTAL BILIRUBIN 10.99 mg/dL (0.20-1.00); TOTAL PROTEIN 6.4 g/dL (6.3-8.3)
[2018-07-06] MEDS: PROTONIX PO SCH (06:04)
[2018-07-06] MEDS: ROCEPHIN 1 GM in NS 50 ML IV SCH (06:05)
[2018-07-06 06:08] LABS: INR 1.64; PROTIME 20.7 Seconds (11.0-16.0)
[2018-07-06 06:14] LABS: MAGNESIUM 1.4 mg/dL (1.5-2.7)
--- NOTE | 2018-07-06 09:31 | PROGRESS NOTE ---
DATE: 07/06/2018 SUBJECTIVE: According to nursing staff overnight, the patient has been very restless and combative, requiring, on top of the Ativan that he was receiving, phenobarbital. Now patient is much more calmed down. No other issues noted. OBJECTIVE: Vital Signs: Temperature 98.8 degrees, heart rate 79, respiratory rate 16, blood pressure 140/103, O2 saturation 98% on room air. General Examination: This is a chronically ill- appearing, 48-year-old, male, lying in bed, in no acute distress. HEENT: Head is normocephalic and atraumatic. Neck: No JVD noted. No carotid bruits. No lymphadenopathy. Cardiovascular Examination: S1 and S2 heard. No murmurs, gallops, or rubs. Regular rate and rhythm. Respiratory Examination: Clear bilaterally to auscultation. No work of breathing or using accessory muscles. Abdomen: Soft. A little bit distended and tender to palpation in the epigastric area. Bowel sounds present. No organomegaly. Extremities: No clubbing, cyanosis, or edema. Peripheral pulses present in both legs. Neurological Examination: The patient is more sleepy and sedated. He had received, a few hours ago, phenobarbital. Laboratory Data: White cell count 7.93, hemoglobin 9.0, hematocrit 26.0, platelets 73,000. INR 1.64. Sodium 136, potassium 3.3, calcium 8.0. Bilirubin 10.99. ASSESSMENT AND PLAN: 1. Gastrointestinal bleed secondary to esophageal varices. Clinically, this patient has not had more episodes of bleeding. Hemoglobin is stable. We will continue checking CBC daily and we will transfuse if needed. 2. Anemia of blood loss. As we mentioned before, after 4 units of blood, the patient is stable. 3. Alcohol withdrawal. This is a condition that started happening yesterday. The patient was in alcohol withdrawal. Since last night, the patient has been really agitated and I think he is going into withdrawal so that is why, at this point, we prefer to transfer him to the intensive care unit for better monitoring. The patient is not able to do Librium. We will start an Ativan drip. 4. Hypertension. Blood patient has been getting higher yesterday and we have started him on amlodipine. Blood pressure is definitely much more acceptable. 5. Acute kidney injury, resolved. 6. Coagulopathy secondary to alcoholic liver cirrhosis. INR continues to be high. We will continue to monitor. 7. Thrombocytopenia related to alcohol abuse, stable. 8. Portal hypertension. Patient is on propranolol and Sandostatin has been stopped. We will continue to monitor. cc: Melchor Lion MD
[2018-07-06] MEDS: M.V.I.-12 10 ML, FOLIC ACID 1 MG, MAGNESIUM SULFATE 1 GM, THIAMINE 100 MG in NS 1,000 ML IV SCH (09:36)
[2018-07-06] MEDS: NORVASC PO SCH ×2 (09:36→21:24)
[2018-07-06] MEDS: INDERAL PO SCH ×3 (09:36→18:02)
[2018-07-06] MEDS: NS 1,000 ML IV SCH ×3 (09:41→22:41)
--- NOTE | 2018-07-06 10:40 | Diag Imaging Result Doc PS360 ---
EXAM: US ABDOMEN-COMPLETE HISTORY: evaluate cirrhosis ascites TECHNIQUE: Abdominal ultrasound COMPARISON: None. FINDINGS: Difficult exam due to the patient's condition. The pancreas is obscured. No abdominal aortic aneurysm. There is fatty infiltration of the liver. Normal inferior vena cava. There is sludge within the gallbladder. No focal stones. Questionable wall thickening. The common bile duct measures 3 mm. Increased renal echotexture. No hydronephrosis. The spleen measures 15.4 cm in length. Trace fluid. No prominent ascites. IMPRESSION: 1.Sludge within the gallbladder with mild wall thickening. This wall thickening may be related to the small amount of ascites. 2.Fatty infiltration of the liver 3.Increased renal echotexture which can be seen with medical renal disease 4.Splenomegaly Electronically signed by Donald Avila 07/06/2018 10:37 AM
[2018-07-06] MEDS: PHENOBARBITAL IV PRN ×2 (12:59→16:47)
--- NOTE | 2018-07-06 13:05 | PROVIDER PROGRESS NOTE ---
Progress Note SUBJECTIVE: Patient agitated overnight urinating on the floor and pulling lines. He required ativan, received phenobarb, and restraints were applied. This AM, he appears more at baseline. He denies N/V/F, CP, SOB, abdominal pain, rectal bleeding. OBJECTIVE: Last Vital Signs Temp 99.5 F 07/06/18 11:57 Pulse 78 07/06/18 11:57 Resp 15 07/06/18 11:57 BP 167/89 07/06/18 11:57 Pulse Ox 97 07/06/18 11:57 Height 5 ft 9 in Weight 160 lb 3 oz GEN: awake, alert, NAD HEENT: icterus, MMM NECK: supple, no jvd CV: RRR, no murmurs PULM: CTAB, no wheezing ABD: soft NT/ND, NABS EXT: no cce SKIN: juandiced NEURO: nonfocal; no asterixis LABS: 07/06/18 07/06/18 07/06/18 05:05 05:05 05:05 WBC 7.93 Hgb 9.0 L Plt Count 73 L D INR 1.64 Sodium 136 Potassium 3.3 L D Chloride 101 Carbon Dioxide 24 L BUN 6 L Creatinine 0.7 Total Bilirubin 10.99 H AST 143 H ALT 54 H Alkaline Phosphatase 96 Albumin 2.9 L EXAM: US ABDOMEN-COMPLETE HISTORY: evaluate cirrhosis ascites TECHNIQUE: Abdominal ultrasound COMPARISON: None. FINDINGS: Difficult exam due to the patient's condition. The pancreas is obscured. No abdominal aortic aneurysm. There is fatty infiltration of the liver. Normal inferior vena cava. There is sludge within the gallbladder. No focal stones. Questionable wall thickening. The common bile duct measures 3 mm. Increased renal echotexture. No hydronephrosis. The spleen measures 15.4 cm in length. Trace fluid. No prominent ascites. IMPRESSION: 1.Sludge within the gallbladder with mild wall thickening. This wall thickening may be related to the small amount of ascites. 2.Fatty infiltration of the liver 3.Increased renal echotexture which can be seen with medical renal disease 4.Splenomegaly EGD 07/04 IMPRESSION: - Esophageal varices with stigmata of recent bleeding, status post banding. - Small hiatal hernia. - Oozing portal hypertensive gastropathy. Mr. Harley Costello is a 48 year old man who presented with decompensated ETOH cirrhosis with alcoholic hepatitis and bleeding varices s/p EVL on 07/04. EGD also notable for oozing PHG and small hiatal hernia. Overnight, he was agitated likely from ETOH withdrawal. Currently, he appears at baseline without signs of hepatic encephalopathy. His bilirubin appears to be plateauing. BCx2 NGTD. Acute hepatitis panel was negative. #Bleeding esophageal varices: s/p 4 units pRBCs/FFP and EGD with EVLx4; hgb stable - cont propranolol 10mg TID; titrate for HR 55-60 - continue CTX for total of 5 days for SBP ppx - repeat EGD in 2-3 as outpatient per banding protocol #Decompensated ETOH cirrhosis: MELD-Na 23; CP-B9 - Cirrhosis: alcohol-related; hep panel neg; trend LFTs, INR daily - Ascites: none on exam; minimal ascites on US; low NA diet - HCC screening: negative for hepatoma, repeat US q6mo - EV: as above - IMM: will eventually need HBV/HAV IgG checked as outpatient - OLT: not a candidate given recent ETOH use #ETOH withdrawal: continue ativan and Librium as per primary team #Alcoholic hepatitis: DF 47; not a candidate for steroids given GI bleed; creatinine WNL; on MVI; replete lytes #PHG: continue PPI PO once daily #Thrombocytopenia: 73K today; no overt bleeding #Anemia: from above; on MVI #Cogulopathy: INR 1.6; stable; 2/2 cirrhosis Will follow with you. Please call with questions
--- NOTE | 2018-07-06 13:41 | Diag Imaging Result Doc PS360 ---
EXAM: CHEST-PORTABLE HISTORY: possible aspiration TECHNIQUE: Portable chest single view COMPARISON: 07/03/2018 FINDINGS: Poor inspiratory effort. The heart is not enlarged. The vessels are not distended. Questionable tiny infiltrate in the left lung base. No effusion identified. IMPRESSION: Questionable tiny left basilar infiltrate. Follow-up PA and lateral recommended. Electronically signed by Donald Avila 07/06/2018 1:38 PM
[2018-07-06] MEDS: ATIVAN 20 MG in NS 190 ML IV SCH (18:37)
[2018-07-07] MEDS: LIBRIUM PO SCH ×3 (02:01→17:59)
[2018-07-07] MEDS: ATIVAN 20 MG in NS 190 ML IV SCH (05:35)
[2018-07-07] MEDS: ROCEPHIN 1 GM in NS 50 ML IV SCH (05:47)
[2018-07-07] MEDS: PROTONIX PO SCH (06:00)
[2018-07-07] MEDS: INDERAL PO SCH ×3 (08:31→16:19)
[2018-07-07] MEDS: NORVASC PO SCH ×2 (08:32→22:15)
[2018-07-07] MEDS: M.V.I.-12 10 ML, FOLIC ACID 1 MG, MAGNESIUM SULFATE 1 GM, THIAMINE 100 MG in NS 1,000 ML IV SCH (08:34)
[2018-07-07] MEDS: POTASSIUM CHLORIDE 20 MEQ/SWI 20 MEQ/100 ML IVPB IV SCH ×2 (09:24→10:52)
--- NOTE | 2018-07-07 09:49 | PROGRESS NOTE ---
DATE: 07/07/2018 SUBJECTIVE: The patient is drowsy this morning. He is on an Ativan drip for alcohol withdrawal. He did not receive any phenobarbital p.r.n. for agitation. OBJECTIVE: Vital Signs: Temperature 99.2 degrees, heart rate 65, respiratory rate 19, blood pressure 145/94, O2 saturation 98% on room air. General Examination: This is a chronically ill- appearing, 48-year-old, male, lying in bed, in no acute distress. HEENT: Head is normocephalic and atraumatic. Neck: No JVD noted. No carotid bruits. No lymphadenopathy. No thyromegaly. Cardiovascular Examination: S1 and S2 heard. No murmurs, gallops, or rubs. Regular rate and rhythm. Respiratory Examination: Minimal coarse breath sounds in the left pulmonary base. The patient is not using any accessory muscles or having work of breathing. Abdomen: Soft. Nontender to palpation. Bowel sounds present. No organomegaly. Extremities: No clubbing, cyanosis, or edema. Peripheral pulses present in both legs. Neurological Examination: The patient is a little more sleepy, drowsy because of the medication that he is receiving. The patient does not follow commands. Laboratory Data: White cell count 7.93, hemoglobin 9.6, hematocrit 26.0, platelets 73,000. INR 1.64. Potassium 3.3, calcium 8.0. Bilirubin 10.99. ASSESSMENT AND PLAN: 1. Gastrointestinal bleed secondary to esophageal viruses. Clinically, this patient has not had any more episodes of bleeding. Hemoglobin is stable. We will continue checking CBC daily. Gastroenterology is also following with this patient. The patient has banding of the esophageal varices. 2. Anemia of blood loss. Hemoglobin is stable after 4 units of blood overall since admission. 3. Alcohol withdrawal. That is the reason why we have sent him to the intensive care unit. We have started him on an Ativan drip and phenobarbital pushes. During the last 12 hours, we did not need to use any phenobarbital at all. At this point, we will continue with the Ativan drip. He is not able to take anything by mouth. At this point, we will continue with the same management. 4. Hypertension. Blood pressure has been fluctuating between 140s and 160s. At this point, we will continue with the same management. 5. Acute kidney injury, resolved. 6. Coagulopathy secondary to alcoholic liver cirrhosis. The patient has received so far 4 units of fresh frozen plasma. INR continues to be high. We will continue to monitor. 7. Thrombocytopenia related to alcohol abuse, stable. There is no overt bleeding. 8. Portal hypertension. The patient is on propranolol. We will continue with the same management. 9. Possible left lower lobe pneumonia. The patient started coughing 2 to 3 days ago, more coughing during the last 3 days. The patient had been started at admission on ceftriaxone for leukocytosis of unknown origin. In any case, I prefer to continue with this medication for a urinary tract infection. We will continue to monitor this patient closely in the intensive care unit. cc: Melchor Lion MD
[2018-07-07] MEDS: NS 1,000 ML IV SCH ×3 (10:52→22:14)
--- NOTE | 2018-07-07 11:43 | GASTROENTEROLOGY PROGRESS NOTE ---
DATE: 07/07/2018 SUBJECTIVE: The patient is resting in bed. He is on an Ativan drip for alcohol withdrawal. He is drowsy this morning. According to the nursing staff, no nausea or vomiting reported. No vomiting blood reported. He has been afebrile. PHYSICAL EXAMINATION: Vital Signs: Temperature 98.5 degrees, pulse rate of 63, respiratory rate of 18, blood pressure 140/97, saturating 98% on room air. His body weight is 151 pounds 3.2 ounces. BMI 22.3 kg/m2. General Appearance: Moderately built, moderately nourished. Lying in bed. He is currently drowsy. He is on an Ativan drip. HEENT: Positive pallor. Icteric sclerae. Neck: Supple. Abdomen: Soft, nondistended. No guarding. Extremities: No cyanosis, clubbing. Neurologic: He is drowsy, could not answer any of my questions. LABS: Hemoglobin and hematocrit are 9 and 26, white count of 7.93, platelet count of 73,000. INR 1.64, PTT of 20.7. Sodium of 132, potassium 3.3, chloride of 101, bicarb, BUN of 6, creatinine 0.7, glucose of 97, calcium 8, phosphorus 3, magnesium 1.4. Total bilirubin is 10.99, AST 143, ALT 54, alkaline phosphatase 96, total protein 6.4, albumin of 2.9. Urinalysis showing small amount of blood. Hepatitis panel is nonreactive. Blood culture x2 negative at 48 hours. Urine culture is negative. Chest x-ray done yesterday showed a questionable tiny left basal infiltrate. IMPRESSION AND PLAN: 1. Decompensated alcoholic cirrhosis, alcoholic hepatitis, and bleeding varices, status post esophageal variceal ligation on 07/04/[address] Milton. We will continue to watch hematocrit and transfuse as needed. Continue propranolol 10 mg by mouth three times a day, titrate for a heart rate between 55 to 60 beats per minute. He will continue on antibiotics for now. He will need a repeat esophagogastroduodenoscopy in 2 to 3 weeks for serial esophageal variceal banding. 2. Portal hypertensive gastropathy. We will continue on Protonix for now. 3. Small hiatal hernia. Continue on gastrointestinal prophylaxis with proton pump inhibitors. 4. Alcohol withdrawal. He is on an Ativan drip. 5. Coagulopathy. Continue to watch INR daily. 6. Anemia. Continue to watch for now. Transfuse as needed. 7. Thrombocytopenia. Continue to watch for now. Transfuse platelets as needed. 8. We will continue him on intravenous fluids and intravenous proton pump inhibitors, intravenous antibiotics, intravenous Ativan drip. He will continue a multivitamin once daily. 9. We will increase his fluids slightly. Apparently, he has been net negative yesterday and so far negative today. 10. The above plan was discussed with the patient and nurse, and all questions were answered. Please call us with any further questions. cc: MD Melchor Luna MD MTDD
[2018-07-07] MEDS: VITAMIN K 10 MG in NS 50 ML IV SCH (11:45)
[2018-07-07] MEDS: SODIUM CHLORIDE 0.9% INJ SCH (11:45)
[2018-07-07] MEDS: PROTONIX IV SCH ×2 (11:45→22:19)
[2018-07-07 12:06] LABS: HEMATOCRIT 29.4 % (42.0-52.0); MPV 11.3 FL (7.4-10.4); RBC 3.23 XMIL (4.7-6.1); WBC 7.53 X1000 (4.8-10.8)
[2018-07-07 12:13] LABS: INR 1.66; PROTIME 20.8 Seconds (11.0-16.0)
[2018-07-07 12:26] LABS: MAGNESIUM 1.5 mg/dL (1.5-2.7); PHOSPHORUS 2.7 mg/dL (2.7-4.5)
[2018-07-07 12:28] LABS: AGAP 13; ALB/GLOB RATIO 0.7; ALBUMIN 2.5 g/dL (3.5-5.0); ALKALINE PHOSPHATASE 91 U/L (32-122); BUN 6 mg/dL (8-22); CALCIUM 7.9 mg/dL (8.8-10.2); CHLORIDE 104 mmol/L (98-107); COSMO 273; CREATININE 0.5 mg/dL (0.7-1.2); ESTIMATED GFR > 60; GLUCOSE 85 mg/dL (70-104); GOT 112 U/L (10-34); GPT 47 U/L (10-44); POTASSIUM 3.7 mmol/L (3.5-5.1); SODIUM 138 mmol/L (136-145); TCO2 21 mmol/L (25-35); TOTAL PROTEIN 5.9 g/dL (6.3-8.3)
[2018-07-08] MEDS: NS 1,000 ML IV SCH ×5 (00:47→23:13)
[2018-07-08] MEDS: LIBRIUM PO SCH ×3 (04:00→18:07)
[2018-07-08 04:09] LABS: HEMATOCRIT 29.4 % (42.0-52.0); HEMOGLOBIN 10.4 g/dL (14.0-18.0); MCH 31.9 PG (27-31); MCHC 35.4 g/dL (33-37); MCV 90.2 FL (81-99); MPV 10.8 FL (7.4-10.4); RBC 3.26 XMIL (4.7-6.1); RDW 17.3 % (11.5-14.5); WBC 9.21 X1000 (4.8-10.8)
[2018-07-08 04:19] LABS: INR 1.6; PROTIME 20.3 Seconds (11.0-16.0)
[2018-07-08 04:28] LABS: MAGNESIUM 1.5 mg/dL (1.5-2.7); PHOSPHORUS 2.4 mg/dL (2.7-4.5)
[2018-07-08 04:31] LABS: AGAP 13; ALB/GLOB RATIO 0.7; ALBUMIN 2.6 g/dL (3.5-5.0); ALKALINE PHOSPHATASE 99 U/L (32-122); BUN 7 mg/dL (8-22); CALCIUM 7.7 mg/dL (8.8-10.2); CHLORIDE 104 mmol/L (98-107); COSMO 271; CREATININE 0.7 mg/dL (0.7-1.2); ESTIMATED GFR > 60; GLUCOSE 76 mg/dL (70-104); GOT 102 U/L (10-34); GPT 46 U/L (10-44); POTASSIUM 3.6 mmol/L (3.5-5.1); SODIUM 137 mmol/L (136-145); TCO2 20 mmol/L (25-35); TOTAL BILIRUBIN 12.39 mg/dL (0.20-1.00); TOTAL PROTEIN 6.2 g/dL (6.3-8.3)
[2018-07-08] MEDS: ROCEPHIN 1 GM in NS 50 ML IV SCH (06:07)
--- NOTE | 2018-07-08 07:55 | Diag Imaging Result Doc PS360 ---
EXAM: CHEST-PORTABLE INDICATION: dyspnea TECHNIQUE: One view COMPARISON: 07/06/2018 FINDINGS: The patient is rotated toward the left. The questionable left basilar infiltrate is less prominent than the previous study. No new consolidation is identified. Cardiac silhouette is stable. IMPRESSION: Questionable left basilar infiltrate is less prominent. Stable chest, otherwise. Electronically signed by Justin Mera 07/08/2018 7:53 AM
[2018-07-08 08:20] LABS: BASO# 0.02 X1000 (0.0-0.2); BASO% 0.2 % (0.0-0.8); EOS# 0.06 X1000 (0.0-0.7); EOS% 0.7 % (0.0-10.0); HEMATOCRIT 29.8 % (42.0-52.0); HEMOGLOBIN 10.2 g/dL (14.0-18.0); IMM GRAN# 0.02 X1000 (0.0-0.04); IMM GRAN% 0.2 % (0.0-0.5); LYMPH# 1.23 X1000 (1.2-3.4); LYMPH% 13.9 % (20.5-51.1); MCH 31.3 PG (27-31); MCHC 34.2 g/dL (33-37); MCV 91.4 FL (81-99); MONO# 0.63 X1000 (0.11-0.59); MONO% 7.1 % (1.7-9.3); MPV 10.5 FL (7.4-10.4); NEUT# 6.87 X1000 (1.4-6.5); NEUT% 77.9 % (42.2-75.2); PLT 104 X1000 (130-400); RBC 3.26 XMIL (4.7-6.1); RDW 17.7 % (11.5-14.5); WBC 8.83 X1000 (4.8-10.8)
[2018-07-08] MEDS: NORVASC PO SCH ×2 (08:48→20:25)
[2018-07-08] MEDS: INDERAL PO SCH ×3 (08:48→16:02)
[2018-07-08] MEDS: VITAMIN K 10 MG in NS 50 ML IV SCH (08:50)
[2018-07-08] MEDS: M.V.I.-12 10 ML, FOLIC ACID 1 MG, MAGNESIUM SULFATE 1 GM, THIAMINE 100 MG in NS 1,000 ML IV SCH (09:13)
[2018-07-08] MEDS: PROTONIX IV SCH ×2 (10:42→22:43)
[2018-07-08] MEDS: SODIUM CHLORIDE 0.9% INJ SCH ×2 (10:42→22:44)
[2018-07-08] MEDS ORDERED: MAGNESIUM SULFATE 2 GM/S.W.I. 2 GM/50 ML IVPB IV ONE (18:24)
--- NOTE | 2018-07-08 18:52 | PROGRESS NOTE ---
DATE: 07/08/2018 SUBJECTIVE: The patient is resting comfortably in bed. He is more awake today and able to answer questions. His is present at the bedside. OBJECTIVE: Vital Signs: Temperature 98 degrees, blood pressure 152/90, heart rate 74, respirations 19, O2 saturation 99% on room air. General: This is a chronically ill-appearing middle-aged male lying in bed in no acute distress. Head: Normocephalic. Skin: Positive for jaundice. Eyes: Positive for scleral icterus. Heart: S1, S2 normal. Regular rate and rhythm. Lungs: Equal air entry bilaterally. No wheezing, no rales, no rhonchi. Abdomen: Positive bowel sounds. Soft, nontender. Extremities: No edema, no cyanosis. Neuro: The patient is awake and alert. He is able to move all 4 extremities. LABS: White blood cell count 8.8, hemoglobin 10, hematocrit 29, platelets 104,000. Sodium 137, INR 1.6, potassium 3.6, BUN 7, creatinine 0.7, glucose 76, total bilirubin 12.3, AST 102, ALT 46. Chest x-ray shows a left basilar infiltrate. ASSESSMENT AND PLAN: 1. Acute decompensated alcoholic liver cirrhosis. Continue with supportive care. GI is following. 2. Acute alcohol withdrawal. The patient remains on the Ativan drip. Will continue to monitor the patient closely for improvement. 3. Chronic thrombocytopenia. Stable. 4. Coagulopathy. Continue with vitamin K. 5. Anemia. Stable. 6. Hypophosphatemia. Will replace the patient's phosphorus. 7. Hypomagnesemia. Will replace the patient's magnesium. 8. Alcohol dependence. Aware. 9. Severe protein calorie malnutrition. The patient likely needs enteral feeding. Will defer to GI regarding this. Will consult with the dietitian. 10. Hypertension. Continue on Norvasc. 11. Gastrointestinal prophylaxis. Continue on IV Protonix. 12. Disposition. The patient's was updated on the patient's medical status today at the bedside. cc: Hanh Donahue MD MTDD
[2018-07-08] MEDS: PHENOBARBITAL IV PRN (20:25)
[2018-07-09] MEDS: NS 1,000 ML IV SCH ×3 (02:00→22:41)
[2018-07-09] MEDS: LIBRIUM PO SCH ×3 (02:28→19:11)
[2018-07-09] MEDS: PHENOBARBITAL IV PRN (02:50)
[2018-07-09] MEDS: ROCEPHIN 1 GM in NS 50 ML IV SCH (05:15)
[2018-07-09 06:40] LABS: BASO# 0.01 X1000 (0.0-0.2); BASO% 0.1 % (0.0-0.8); EOS# 0.09 X1000 (0.0-0.7); EOS% 1.1 % (0.0-10.0); HEMATOCRIT 29.4 % (42.0-52.0); HEMOGLOBIN 10.2 g/dL (14.0-18.0); IMM GRAN# 0.02 X1000 (0.0-0.04); IMM GRAN% 0.2 % (0.0-0.5); LYMPH% 13.2 % (20.5-51.1); MCH 31.6 PG (27-31); MCHC 34.7 g/dL (33-37); MONO# 0.78 X1000 (0.11-0.59); MONO% 9.3 % (1.7-9.3); MPV 11.1 FL (7.4-10.4); NEUT# 6.35 X1000 (1.4-6.5); NEUT% 76.1 % (42.2-75.2); PLT 126 X1000 (130-400); RBC 3.23 XMIL (4.7-6.1); RDW 17.9 % (11.5-14.5); WBC 8.35 X1000 (4.8-10.8)
[2018-07-09 06:45] LABS: INR 1.62; PROTIME 20.5 Seconds (11.0-16.0)
[2018-07-09 07:12] LABS: AGAP 12; ALB/GLOB RATIO 0.7; ALBUMIN 2.6 g/dL (3.5-5.0); ALKALINE PHOSPHATASE 98 U/L (32-122); BUN 7 mg/dL (8-22); CALCIUM 7.8 mg/dL (8.8-10.2); CHLORIDE 107 mmol/L (98-107); COSMO 276; CREATININE 0.6 mg/dL (0.7-1.2); ESTIMATED GFR > 60; GLUCOSE 82 mg/dL (70-104); GOT 86 U/L (10-34); GPT 43 U/L (10-44); POTASSIUM 3.6 mmol/L (3.5-5.1); SODIUM 140 mmol/L (136-145); TCO2 21 mmol/L (25-35); TOTAL BILIRUBIN 14.38 mg/dL (0.20-1.00); TOTAL PROTEIN 6.2 g/dL (6.3-8.3)
[2018-07-09 07:14] LABS: MAGNESIUM 1.8 mg/dL (1.5-2.7); PHOSPHORUS 2.2 mg/dL (2.7-4.5)
[2018-07-09] MEDS ORDERED: POTASSIUM PHOSPHATE 20 MMOL in NS 250 ML IV ONE (07:41)
--- NOTE | 2018-07-09 07:43 | Diag Imaging Result Doc PS360 ---
EXAM: CHEST-PORTABLE INDICATION: dyspnea TECHNIQUE: One view COMPARISON: 07/08/2018 FINDINGS: Inspiration is suboptimal similar to the previous study. The questionable left basilar infiltrate seen previously has grossly resolved. No new consolidation is identified. Cardiac silhouette is stable. IMPRESSION: Gross resolution of the questionable left basilar infiltrate seen previously. Electronically signed by Justin Mera 07/09/2018 7:41 AM
[2018-07-09] MEDS: M.V.I.-12 10 ML, FOLIC ACID 1 MG, MAGNESIUM SULFATE 1 GM, THIAMINE 100 MG in NS 1,000 ML IV SCH (08:22)
[2018-07-09] MEDS: NORVASC PO SCH ×2 (08:23→20:08)
[2018-07-09] MEDS: INDERAL PO SCH ×3 (08:23→18:00)
[2018-07-09] MEDS: VITAMIN K 10 MG in NS 50 ML IV SCH (08:23)
[2018-07-09 09:13] LABS: SED RATE 19 mm/hr (0-15)
[2018-07-09 09:56] LABS: HIV ANTIBODY SCREEN SEE COMMENTS
[2018-07-09] MEDS: SODIUM CHLORIDE 0.9% INJ SCH (11:33)
[2018-07-09] MEDS: PROTONIX IV SCH ×2 (11:33→22:41)
--- NOTE | 2018-07-09 15:36 | PROGRESS NOTE ---
DATE: 07/09/2018 SUBJECTIVE: The patient was noted to be a little agitated this morning, and so he received phenobarbital overnight. No acute events noted. OBJECTIVE: Vital Signs: Temperature 99 degrees, blood pressure 151/103, heart rate 75, respirations 21, and O2 saturation 97% on room air. General: This is a middle-aged male lying in bed in no acute distress. HEENT: Head normocephalic and atraumatic. Heart: S1, S2 normal. Regular rate and rhythm. Lungs: Equal air entry bilaterally. No crackles. No rales. Abdomen: Positive bowel sounds. Soft, nontender, and nondistended. Extremities: No edema. No cyanosis. Neurologic: The patient is awake, but confused. He is currently in wrist restraints. LABORATORY: White blood cell count 8.3, hemoglobin 10, hematocrit 29, and platelets 126,000. Sodium 140, potassium 3.6, chloride 107, INR 1.6, BUN 7, creatinine 0.6, glucose 82, total bilirubin 14, and AST 86. Chest x-ray shows no new consolidation. ASSESSMENT AND PLAN: 1. Acute decompensated alcoholic liver cirrhosis. Unchanged. Continue with supportive care. Further management as per GI. 2. Acute alcohol withdrawal. The patient is off of the Ativan drip. He is currently on Librium. 3. Coagulopathy. Aware. Monitor closely. The patient does not have any active bleeding. 4. Hypophosphatemia. We will replace the patient's phosphorus. 5. Hypertension. We will start the patient on Lopressor. 6. Thrombocytopenia. Improved. 7. Anemia. Stable. 8. Severe protein calorie malnutrition. The patient has been started on a clear liquid diet and Ensure. We will monitor the patient closely. 9. Gastrointestinal prophylaxis. The patient is on IV Protonix. cc: Hanh Donahue MD
[2018-07-09] MEDS: ATIVAN IV PRN ×3 (15:59→22:40)
--- NOTE | 2018-07-10 03:33 | PROVIDER PROGRESS NOTE ---
Progress Note 07/09/2018 Late entry SUBJECTIVE: patient is off ativan drip. confused and agitated overnight requiring phenobarb. this AM he is confused OBJECTIVE GEN: awake, NAD HEENT: icterus, MMM NECK: supple, no jvd CV: RRR, no murmurs PULM: CTAB, no wheezing ABD: soft NT/ND, NABS EXT: no cce SKIN: jaundiced NEURO: nonfocal; asterixis difficult to assess, confused, tremulous LABS: 07/09/18 07/09/18 07/09/18 04:40 04:40 04:40 WBC 8.35 Hgb 10.2 L Plt Count 126 L INR 1.62 Sodium 140 Potassium 3.6 Chloride 107 Carbon Dioxide 21 L BUN 7 L Creatinine 0.6 L Total Bilirubin 14.38 H AST 86 H ALT 43 Alkaline Phosphatase 98 Total Protein 6.2 L Albumin 2.6 L Mr. Harley Costello is a 48 year old man who presented with decompensated ETOH cirrhosis with alcoholic hepatitis and bleeding varices s/p EVL on 07/04. EGD also notable for oozing PHG and small hiatal hernia. Course complicated by ETOH withdrawal. #Bleeding esophageal varices: s/p 4 units pRBCs/FFP and EGD with EVLx4; hgb stable - cont propranolol 10mg TID; titrate for HR 55-60 - continue CTX for total of 5 days for SBP ppx - repeat EGD in 2-3 as outpatient per banding protocol #Decompensated ETOH cirrhosis: MELD-Na 23; CP-B9 - Cirrhosis: alcohol-related; hep panel neg; trend LFTs, INR daily - Ascites: none on exam; minimal ascites on US; low NA diet - HCC screening: negative for hepatoma, repeat US q6mo - EV: as above - IMM: will eventually need HBV/HAV IgG checked as outpatient - OLT: not a candidate given recent ETOH use #ETOH withdrawal: continue ativan and Librium as per primary team; avoid phenobarb as I am concerned it is making him more confused #Alcoholic hepatitis: DF 47; not a candidate for steroids given GI bleed; creatinine WNL; on MVI; replete lytes #PHG: continue PPI once daily #Thrombocytopenia: increasing; no overt bleeding #Anemia: from above; on MVI #Cogulopathy: INR 1.6; stable; 2/2 cirrhosis #Abnormal LFTs: rising bilirubin and improving transaminases; Bili lags behind AST and ALT; expect it will plataeu in coming days and then downtrend over days to weeks #FEN: advance diet as tolerated when mental status improves; currently on clears Will follow with you. Please call with questions
[2018-07-10] MEDS: LIBRIUM PO SCH ×3 (03:41→18:09)
[2018-07-10] MEDS: ROCEPHIN 1 GM in NS 50 ML IV SCH (05:34)
[2018-07-10 05:59] LABS: BASO# 0.02 X1000 (0.0-0.2); BASO% 0.2 % (0.0-0.8); EOS# 0.08 X1000 (0.0-0.7); EOS% 0.9 % (0.0-10.0); HEMOGLOBIN 10.1 g/dL (14.0-18.0); LYMPH% 15.4 % (20.5-51.1); MCH 31.6 PG (27-31); MCHC 34.8 g/dL (33-37); MCV 90.6 FL (81-99); MONO# 0.87 X1000 (0.11-0.59); MONO% 10.3 % (1.7-9.3); NEUT# 6.17 X1000 (1.4-6.5); NEUT% 73.2 % (42.2-75.2); PLT 139 X1000 (130-400); WBC 8.44 X1000 (4.8-10.8)
[2018-07-10 06:19] LABS: AGAP 13; ALB/GLOB RATIO 0.7; ALBUMIN 2.7 g/dL (3.5-5.0); ALKALINE PHOSPHATASE 101 U/L (32-122); BUN 4 mg/dL (8-22); CALCIUM 7.8 mg/dL (8.8-10.2); CHLORIDE 106 mmol/L (98-107); COSMO 274; CREATININE 0.5 mg/dL (0.7-1.2); ESTIMATED GFR > 60; GLUCOSE 88 mg/dL (70-104); GOT 94 U/L (10-34); GPT 44 U/L (10-44); POTASSIUM 3.7 mmol/L (3.5-5.1); SODIUM 139 mmol/L (136-145); TCO2 20 mmol/L (25-35); TOTAL BILIRUBIN 14.11 mg/dL (0.20-1.00); TOTAL PROTEIN 6.5 g/dL (6.3-8.3)
[2018-07-10 06:20] LABS: INR 1.59; PROTIME 20.2 Seconds (11.0-16.0)
[2018-07-10] MEDS: NS 1,000 ML IV SCH ×2 (08:41→18:09)
[2018-07-10] MEDS: NORVASC PO SCH ×2 (08:44→21:07)
[2018-07-10] MEDS: M.V.I.-12 10 ML, FOLIC ACID 1 MG, MAGNESIUM SULFATE 1 GM, THIAMINE 100 MG in NS 1,000 ML IV SCH (08:44)
[2018-07-10] MEDS: INDERAL PO SCH ×3 (08:44→16:22)
[2018-07-10] MEDS: VITAMIN K 10 MG in NS 50 ML IV SCH (08:45)
[2018-07-10] MEDS: PROTONIX IV SCH (11:01)
--- NOTE | 2018-07-10 12:28 | PROGRESS NOTE ---
DATE: 07/10/2018 SUBJECTIVE: The patient is awake, but confused. He remains in wrist restraints. He required Ativan overnight. OBJECTIVE: Vital Signs: Temperature 98.3 degrees, blood pressure 122/81, heart rate 75, respirations 16, O2 saturation 100% on room air. General: This is a middle-aged male, lying in bed in no acute distress. Heart: S1, S2 normal. Regular rate and rhythm. Lungs: Equal air entry bilaterally. No crackles. No rales. Abdomen: Positive bowel sounds. Soft, nontender, nondistended. Extremities: No edema. No cyanosis. Neurologic: The patient is awake, but confused. He is able to move all 4 extremities. LABS: White blood cell count 8.4, hemoglobin 10, hematocrit 29, platelets 131. INR 1.5. Sodium 139, potassium 3.7, chloride 106, CO2 20. BUN 4, creatinine 0.5, glucose 88, calcium 7.8. Total bilirubin 14, AST 94, ALT 44. ASSESSMENT AND PLAN: 1. Acute decompensated alcoholic liver cirrhosis. Continue with supportive care. 2. Acute alcohol withdrawal. Continue with Ativan as needed as well as Librium. 3. Coagulopathy. Stable. 4. Hypertension. Continue on propranolol and Norvasc. 5. Anemia. Stable. 6. Severe protein calorie malnutrition. Continue on the current diet. 7. Gastrointestinal prophylaxis. Continue on intravenous Protonix. 8. Disposition: The patient's was updated on the patient's overall medical condition. cc: Hanh Donahue MD
--- NOTE | 2018-07-10 13:14 | GASTROENTEROLOGY PROGRESS NOTE ---
DATE: 07/10/2018 SUBJECTIVE: Resting in bed. He is in restraints. His and family were at the bedside. According to the nursing records, no fever reported. No nausea, vomiting, or vomiting blood reported. He is going through withdrawal. OBJECTIVE: Vital signs: T 98.3 degrees, pulse of 74, respiratory rate 16, blood pressure 122/81, satting 100% on room air. General Appearance: Moderately well nourished, lying in bed, currently in restraints. He was able to answer some of my questions. HEENT: Positive pallor. Positive icterus. Neck: Supple. Abdomen: Soft, nondistended. No guarding. Extremities: He is in upper and lower extremity restraints. Neurologic: Neuro milian, he was sleepy, was able to wake up and answer simple questions. LABS: Hemoglobin and hematocrit is 10.1 and 29, white count of 8.4, platelet count of 139. Sodium 139, potassium 3.7, chloride 106, bicarbonate of 29, anion gap of 13. BUN of 4, creatinine 0.5, glucose of 88, calcium 7.8. Total bilirubin is 14.1, AST 94, ALT 44, alkaline phosphatase 101, total protein 6, albumin of 2.7. INR 1.59, PT of 20.2. His HIV 1 and 2 are nonreactive. X-RAYS: Chest x-ray done yesterday showed gross resolution of questionable left basal infiltrate seen previously. IMPRESSION AND PLAN: 1. Alcoholic cirrhosis, decompensated. Continue to watch for now. We will continue on serial labs every day. 2. Alcoholic hepatitis. We will continue on pentoxifylline 4 mg three times a day. 3. Bleeding esophageal varices, status post esophageal variceal ligation on 07/04/[address] Milton. He is put on propranolol 10 mg oral three times a day, heart rate of 55 to 60. Avoid any nonsteroidal anti-inflammatory drugs. 4. Portal hypertensive gastropathy secondary to cirrhosis of the liver. Aware. Continue to watch hematocrit. 5. He also has a small hiatal hernia. Continue on gastroesophageal prophylaxis with proton pump inhibitors and lifestyle changes. 6. Alcoholism. The patient will need counseling to quit alcohol completely. I have spoken about this to the patient's family at bedside. 7. Alcohol withdrawal. He is on Ativan and Librium per the primary care team. Avoid phenobarbital, and I discussed that with the nursing staff and the primary care team. 8. Gastrointestinal prophylaxis with proton pump inhibitors and thrombocytopenia, aware. It is improving. 9. Anemia, stable. 10. Coagulopathy secondary to cirrhosis. Continue to watch for now. 11. He is on prophylactic for ceftriaxone once a day as he had a vessel bleed. 12. I will continue clear liquid diet and Ensure 3 times daily. The above discussed with the patient's family at bedside. All questions answered. Discussed with the nursing staff and all questions were answered. Please call us with any further questions. cc: MD Hanh Luna MD
[2018-07-10] MEDS: ATIVAN IV PRN (20:19)
[2018-07-11] MEDS: PROTONIX IV SCH ×3 (00:30→23:12)
[2018-07-11] MEDS: LIBRIUM PO SCH ×3 (04:21→17:59)
[2018-07-11] MEDS: NS 1,000 ML IV SCH ×3 (04:35→23:11)
[2018-07-11] MEDS: ROCEPHIN 1 GM in NS 50 ML IV SCH (06:07)
[2018-07-11 06:44] LABS: HEMOGLOBIN 9.5 g/dL (14.0-18.0); MCH 32.5 PG (27-31); MCHC 35.2 g/dL (33-37); MCV 92.5 FL (81-99); RBC 2.92 XMIL (4.7-6.1); RDW 17.9 % (11.5-14.5); WBC 8.86 X1000 (4.8-10.8)
[2018-07-11 06:50] LABS: INR 1.57
[2018-07-11 07:13] LABS: AGAP 8; ALB/GLOB RATIO 0.7; ALBUMIN 2.5 g/dL (3.5-5.0); ALKALINE PHOSPHATASE 106 U/L (32-122); BUN 4 mg/dL (8-22); CALCIUM 7.6 mg/dL (8.8-10.2); CHLORIDE 104 mmol/L (98-107); COSMO 263; CREATININE 0.6 mg/dL (0.7-1.2); ESTIMATED GFR > 60; GLUCOSE 91 mg/dL (70-104); GOT 102 U/L (10-34); GPT 44 U/L (10-44); POTASSIUM 3.3 mmol/L (3.5-5.1); SODIUM 133 mmol/L (136-145); TCO2 21 mmol/L (25-35); TOTAL BILIRUBIN 13.94 mg/dL (0.20-1.00); TOTAL PROTEIN 6.1 g/dL (6.3-8.3)
[2018-07-11] MEDS ORDERED: KLOR-CON PO ONE (07:17)
--- NOTE | 2018-07-11 07:25 | Diag Imaging Result Doc PS360 ---
EXAM: ABDOMEN FLAT/UPRIGHT HISTORY: constipation TECHNIQUE: Flat and upright, two views COMPARISON: None. FINDINGS: No free air beneath the diaphragm. No organomegaly. No bowel obstruction. No foreign body. No abnormal abdominal calcifications. IMPRESSION: No significant constipation Electronically signed by Donald Avila 07/11/2018 7:22 AM
[2018-07-11] MEDS: INDERAL PO SCH ×3 (08:02→17:58)
[2018-07-11] MEDS: M.V.I.-12 10 ML, FOLIC ACID 1 MG, MAGNESIUM SULFATE 1 GM, THIAMINE 100 MG in NS 1,000 ML IV SCH (08:02)
[2018-07-11] MEDS: NORVASC PO SCH ×2 (08:03→21:07)
--- NOTE | 2018-07-11 15:17 | PROGRESS NOTE ---
DATE: 07/11/2018 SUBJECTIVE: The patient is still somewhat confused. He remains in wrist restraints. Overnight the patient received 1 dose of Ativan. OBJECTIVE: Vital Signs: Temperature 99 degrees blood pressure 117/82, heart rate 75, respirations 16. Blood pressure 128/80, heart rate 75, respiratory rate 16, O2 saturation 96% on room air. General: This is a middle-aged male lying in bed in no acute distress. Heart: S1, S2 normal. Regular rate and rhythm. Lungs: Clear to auscultation bilaterally. No wheezing. No rales. No rhonchi. Abdomen: Positive bowel sounds. Soft, nontender, nondistended. Extremities: No edema. No cyanosis. Neurologic: The patient is alert and oriented x3. LABS: White blood cell count 8.8, hemoglobin 9.5, hematocrit 27, platelets 136. INR 1.5. Sodium 133, potassium 3.3, chloride 104, CO2 21. BUN 4, creatinine 0.6 glucose 91, total bilirubin 13, AST 102, ALT 44. X-RAYS: Abdominal x-ray: No evidence of constipation. ASSESSMENT AND PLAN: 1. Acute decompensated alcoholic liver cirrhosis. Continue with supportive care. The patient's bilirubin is trending down slowly. 2. Acute alcohol withdrawal. The patient is currently on Librium and prn Ativan for agitation. 3. Coagulopathy. Stable. 4. Variceal bleed s/p banding. Stable. 5. Anemia. Stable. 6. Hypertension. Continue on propranolol and Norvasc. 7. Severe protein calorie malnutrition. Continue on the current diet as ordered. 8. Gastrointestinal prophylaxis. Continue on Protonix. 9. Disposition: The patient continues to require restraints. We will continue to monitor the patient closely. cc: MD MAXIMILIANO Calderon
--- NOTE | 2018-07-11 21:59 | PROVIDER PROGRESS NOTE ---
Progress Note SUBJECTIVE: The patient did not require any ativan or librium overnight. His restraints have been removed. He is sleepy but arousable and follows simple commands. No rectal bleeding. He complains of some abdominal discomfort and distension. No vomiting. OBJECTIVE: Last Vital Signs Temp 99.5 F 07/11/18 20:00 Pulse 81 07/11/18 20:01 Resp 24 07/11/18 20:01 BP 140/105 07/11/18 20:01 Pulse Ox 94 L 07/11/18 20:01 Height 5 ft 9 in Weight 157 lb 1.6 oz GEN: awake, NAD HEENT: icterus, MMM NECK: supple, no jvd CV: RRR, no murmurs PULM: CTAB, no wheezing ABD: soft NT, mild abdominal distension, NABS EXT: no cce SKIN: jaundiced NEURO: nonfocal; no asterixis, lethargic, but arousable LABS: 07/11/18 07/11/18 07/11/18 06:00 06:00 06:00 WBC 8.86 Hgb 9.5 L Plt Count 136 INR 1.57 Sodium 133 L Potassium 3.3 L Chloride 104 Carbon Dioxide 21 L BUN 4 L Creatinine 0.6 L Total Bilirubin 13.94 H AST 102 H ALT 44 Alkaline Phosphatase 106 Total Protein 6.1 L Albumin 2.5 L KUB this AM WNL A/P Mr. Harley Costello is a 48 year old man who presented with decompensated ETOH cirrhosis with alcoholic hepatitis and bleeding varices s/p EVL on 07/04. EGD also notable for oozing PHG and small hiatal hernia. Course complicated by ETOH withdrawal that is improving. #Bleeding esophageal varices: s/p 4 units pRBCs/FFP and EGD with EVLx4; hgb stable - cont propranolol 10mg TID; titrate for HR 55-60 - patient has received 7 days of CTX, will discontinue - repeat EGD in 2-3 as outpatient per banding protocol, repeat due 07/18 #Decompensated ETOH cirrhosis - Cirrhosis: alcohol-related; hep panel neg; trend LFTs, INR daily - Ascites: none on exam; minimal ascites on US; low NA diet - HCC screening: negative for hepatoma, repeat US q6mo - EV: as above - IMM: will eventually need HBV/HAV IgG checked as outpatient - OLT: not a candidate given recent ETOH use #ETOH withdrawal: improving #Alcoholic hepatitis: DF 47; not a candidate for steroids given GI bleed #PHG: continue PPI once daily #Thrombocytopenia: stable #Anemia: from above; on MVI #Cogulopathy: INR 1.6; stable; 2/2 cirrhosis #Abnormal LFTs: reached plataeu; trend daily #FEN: clear liquid diet; advance as tolerated, replete lytes prn Will follow with you. Please call with questions
[2018-07-12] MEDS: LIBRIUM PO SCH ×2 (03:15→11:25)
[2018-07-12] MEDS: NS 1,000 ML IV SCH ×3 (03:15→14:43)
[2018-07-12 06:26] LABS: INR 1.72; PROTIME 21.5 Seconds (11.0-16.0)
[2018-07-12 06:46] LABS: HEMATOCRIT 27.3 % (42.0-52.0); HEMOGLOBIN 9.3 g/dL (14.0-18.0); MCH 32.2 PG (27-31); MCHC 34.1 g/dL (33-37); MCV 94.5 FL (81-99); MPV 11.4 FL (7.4-10.4); RBC 2.89 XMIL (4.7-6.1); RDW 18.4 % (11.5-14.5); WBC 9.44 X1000 (4.8-10.8)
[2018-07-12 07:11] LABS: AGAP 11; ALB/GLOB RATIO 0.7; ALBUMIN 2.5 g/dL (3.5-5.0); ALKALINE PHOSPHATASE 98 U/L (32-122); BUN 4 mg/dL (8-22); CHLORIDE 104 mmol/L (98-107); COSMO 266; CREATININE 0.5 mg/dL (0.7-1.2); ESTIMATED GFR > 60; GLUCOSE 84 mg/dL (70-104); GOT 105 U/L (10-34); GPT 47 U/L (10-44); SODIUM 135 mmol/L (136-145); TCO2 20 mmol/L (25-35); TOTAL BILIRUBIN 14.47 mg/dL (0.20-1.00); TOTAL PROTEIN 6.3 g/dL (6.3-8.3)
[2018-07-12] MEDS: NORVASC PO SCH ×2 (08:22→21:03)
[2018-07-12] MEDS: INDERAL PO SCH ×3 (08:22→16:28)
[2018-07-12] MEDS: M.V.I.-12 10 ML, FOLIC ACID 1 MG, MAGNESIUM SULFATE 1 GM, THIAMINE 100 MG in NS 1,000 ML IV SCH (08:24)
[2018-07-12] MEDS: PROTONIX IV SCH ×2 (11:15→23:12)
[2018-07-12] MEDS: SODIUM CHLORIDE 0.9% INJ SCH (11:15)
[2018-07-12] MEDS ORDERED: VITAMIN K 10 MG in NS 50 ML IV SCH (14:30)
[2018-07-12] MEDS: VITAMIN K 10 MG in NS 50 ML IV SCH (14:43)
--- NOTE | 2018-07-12 16:18 | GASTROENTEROLOGY PROGRESS NOTE ---
DATE: 07/12/2018 SUBJECTIVE: He is resting in bed. He is slightly confused, but he is off restraints. His is at the bedside. I discussed the labs with the patient's at bedside. I also spoke with the patient's hospitalist, Dr. Donahue. The patient denies any fevers, rigors, or chills. He has not thrown up any blood. He had 2 soft brown stools yesterday. OBJECTIVE: Vitals: Temperature of 98.7, pulse of 71, respiratory rate of 14, blood pressure 146/89, satting 97% on room air. Body weight of 166 pounds 8 ounces. BMI 24.6 kg. General appearance: He is moderately well-nourished, lying in bed in no acute distress. HEENT: Pale conjunctivae. Icteric sclerae. Neck: Supple. Abdomen: Soft. No guarding. No rebound. Mildly protuberant. Extremities: No cyanosis, clubbing. Neurologic: Neuro-milian, he was sleepy. He was able to answer simple questions like his name. LABS: H and H is 9.3 and 27.3, white count of 9.4, platelet count of 142. Sodium of 135, potassium 4, chloride 104, bicarbonate 29. A BUN of 4, creatinine 0.5, glucose of 84, calcium is 8. Total bilirubin is 14.47, AST 105, ALT 47, alkaline phosphatase 90, total protein 6.3, albumin of 2.5. INR 1.7 and PT of 21.5. Urine cultures negative for blood for 5 days. X-RAYS: Abdominal x-ray done yesterday showed no significant constipation. IMPRESSION AND PLAN: 1. Bleeding esophageal varices status post 4 units of blood and fresh frozen plasma. He had esophagogastroduodenoscopy with esophageal variceal ligation per Dr. Milton. Hemoglobin is stable, continue to watch and transfuse to keep the hematocrit slightly above 23%. 2. He will be on propranolol 10 mg oral three times a day and titrate to heart rate of 55 to 60 beats per minute. 3. The patient is on antibiotics as he had episode of bleeding. 4. We will continue to follow with Dr. Milton as outpatient for repeat esophagogastroduodenoscopy with banding for banding protocol. 5. Decompensated alcoholic cirrhosis. His liver enzymes are trending up. His bilirubin is trending up. His iron is trending up. We have discussed the possibility of transferring him to [facility]. He may not be a transplant candidate given history of active drinking. 6. Ascites. None on exam. Minimal ascites on ultrasound. Will continue low sodium diet. 7. Alcohol withdrawal; he is improving. 8. Alcoholic hepatitis. Continue to watch his liver enzymes. 9. Portal hypertensive gastropathy. Continue proton pump inhibitors once daily. 10. Thrombocytopenia, stable. 11. Anemia. Continue to watch for now. 12. Coagulopathy secondary to cirrhosis. Continue to follow. 13. Malnutrition. He is on full liquid diet and Ensure 3 times daily. Above plan discussed with the patient and the patient's family at bedside. All questions were answered. Please call us with any further questions. cc: MD Hanh Luna MD
--- NOTE | 2018-07-12 18:26 | PROGRESS NOTE ---
DATE: 07/12/2018 SUBJECTIVE: The patient is somewhat sad today. He is out of wrist restraints. OBJECTIVE: Vital Signs: Temperature 99 degrees, blood pressure 108/72, heart rate 70, respirations 16, O2 saturation 95% on room air. General: This is a middle-aged male lying in bed in no acute distress. Heart: S1, S2, normal. Lungs: Equal air entry bilaterally. No wheezing, no rales, no rhonchi. Abdomen: Positive bowel sounds. Soft, nontender, nondistended. Extremities: No edema. No cyanosis. Neurologic: The patient is alert and oriented x2. LABORATORY DATA: White blood cell count 9.4, hemoglobin 9.3, hematocrit 27, platelets 142,000. INR 1.7. Sodium 135, potassium 4, chloride 104, CO2 is 20, BUN 4, creatinine 0.5, glucose 84, total bilirubin 14, AST 105, ALT 47, alkaline phosphatase 98. ASSESSMENT AND PLAN: 1. Gastrointestinal bleed secondary to a variceal bleed status post banding. No further bleeding noted. Continue on propranolol and Protonix. 2. Acute decompensated alcoholic liver cirrhosis. Continue with supportive care. 3. Acute alcohol withdrawal, slowly improving. The patient is out of wrist restraints. Continue with p.r.n. Ativan. 4. Coagulopathy. The INR is a little bit higher today. We will monitor closely. 5. Anemia. Stable. 6. Hypertension. Controlled. 7. Disposition. We will transfer the patient to cardiac intensive care unit. We will also consult Physical Therapy and Occupational Therapy. cc: Hanh Donahue MD MTDD
[2018-07-12] MEDS: ICAR-C PO SCH (21:03)
[2018-07-13] MEDS: NS 1,000 ML IV SCH ×3 (01:41→18:20)
[2018-07-13 06:17] LABS: HEMATOCRIT 29.3 % (42.0-52.0); HEMOGLOBIN 10.1 g/dL (14.0-18.0); MCH 32.3 PG (27-31); MCHC 34.5 g/dL (33-37); MCV 93.6 FL (81-99); MPV 10.9 FL (7.4-10.4); RBC 3.13 XMIL (4.7-6.1); RDW 18.6 % (11.5-14.5); WBC 9.31 X1000 (4.8-10.8)
[2018-07-13 06:46] LABS: INR 1.58
[2018-07-13 06:50] LABS: AGAP 9; ALB/GLOB RATIO 0.6; ALBUMIN 2.6 g/dL (3.5-5.0); ALKALINE PHOSPHATASE 113 U/L (32-122); BUN 4 mg/dL (8-22); CALCIUM 8.2 mg/dL (8.8-10.2); CHLORIDE 108 mmol/L (98-107); COSMO 271; CREATININE 0.6 mg/dL (0.7-1.2); ESTIMATED GFR > 60; GLUCOSE 96 mg/dL (70-104); GOT 95 U/L (10-34); GPT 46 U/L (10-44); POTASSIUM 3.7 mmol/L (3.5-5.1); SODIUM 137 mmol/L (136-145); TCO2 20 mmol/L (25-35); TOTAL PROTEIN 6.6 g/dL (6.3-8.3)
[2018-07-13 07:24] LABS: TOTAL BILIRUBIN 15.86 mg/dL (0.20-1.00)
[2018-07-13] MEDS: M.V.I.-12 10 ML, FOLIC ACID 1 MG, MAGNESIUM SULFATE 1 GM, THIAMINE 100 MG in NS 1,000 ML IV SCH (08:52)
[2018-07-13] MEDS: CENTRUM SILVER PO SCH (08:53)
[2018-07-13] MEDS: NORVASC PO SCH ×2 (08:53→22:34)
[2018-07-13] MEDS: INDERAL PO SCH ×3 (08:53→16:45)
[2018-07-13] MEDS: ICAR-C PO SCH ×2 (08:53→22:33)
[2018-07-13] MEDS: SODIUM CHLORIDE 0.9% INJ SCH (10:45)
[2018-07-13] MEDS: PROTONIX IV SCH (10:45)
[2018-07-13] MEDS: LACTULOSE PO SCH ×2 (12:31→16:45)
[2018-07-13] MEDS: VITAMIN K 10 MG in NS 50 ML IV SCH (13:38)
--- NOTE | 2018-07-13 14:55 | Diag Imaging Result Doc PS360 ---
EXAM: US ABDOMEN-COMPLETE HISTORY: R/O Ascites TECHNIQUE: Abdominal ultrasound COMPARISON: 07/06/2018 FINDINGS: There is a small to moderate amount of fluid within the abdomen. The common bile duct measures 5 mm. The spleen measures 15.7 cm in length. Mild thickening to the gallbladder wall. This is likely seen with ascites. There is sludge within the gallbladder. No hydronephrosis. No focal renal abnormality. The liver measures over 19 cm in length. There is fatty infiltration. The pancreas is predominantly obscured. The aorta and inferior vena cava are poorly seen. IMPRESSION: Interval increase in the small to moderate amount of ascites. Electronically signed by Donald Avila 07/13/2018 2:53 PM
--- NOTE | 2018-07-13 15:01 | PROGRESS NOTE ---
DATE: 08/12/2018 SUBJECTIVE: The patient is lethargic this morning, no acute events noted overnight. OBJECTIVE: Vital signs temperature 98.6 degrees, blood pressure 135/94, heart rate 77, respirations 22, O2 saturation 95% on room air, intake 3.2 L, output 1.2 L. General: This is a chronically ill-appearing middle-aged male lying in bed in no acute distress heart. S1, S2 normal. Regular rate and rhythm. Lungs clear to auscultation bilaterally. Abdomen positive bowel sounds, soft, mildly distended. Extremities no edema, no cyanosis. Neuro the patient is lethargic. LABS: White blood cell count 9.3, hemoglobin 10, hematocrit 29, platelets 160,000. Sodium 137, potassium 3.7, INR 1.5, ammonia 43, total bilirubin 15, AST 95, ALT 46. ASSESSMENT AND PLAN: 1. Gastrointestinal bleed secondary to variceal bleed status post banding. Stable. Continue on propranolol and Protonix. 2. Acute decompensated alcoholic liver cirrhosis. The bilirubin continues to rise. Continue with supportive care. Gastroenterology is following. 3. Acute alcohol withdrawal. The patient has not received Ativan since July 4. We will check an ammonia level. 4. Anemia. Stable. 5. Coagulopathy. Slightly improved today. 6. Hypertension. Controlled. cc: Hanh Donahue MD MTDD
--- NOTE | 2018-07-13 16:43 | Diag Imaging Result Doc PS360 ---
EXAM: KUB ABDOMEN HISTORY: R/O constipation TECHNIQUE: Abdomen two views COMPARISON: 07/11/2018 FINDINGS: No bowel obstruction. No significant stool in the colon. No organomegaly. No foreign body. No abnormal abdominal calcifications. IMPRESSION: No constipation. Electronically signed by Donald Avila 07/13/2018 4:40 PM
[2018-07-13] MEDS ORDERED: MORPHINE IV ONE (18:15)
--- NOTE | 2018-07-13 18:46 | GASTROENTEROLOGY PROGRESS NOTE ---
DATE: 07/13/2018 SUBJECTIVE: Resting in bed. He is more awake and he was able to answer some of my questions. His was at bedside. His labs are showing continuing increasing total bilirubin, although his AST and ALT have stabilized and plateaued. I am expecting his bilirubin to start turning around. He continues to have coagulopathy. He does not have any documented history of nausea, vomiting, or GI bleeding. He had a fever spike of 100.1 degrees at 4 a.m. today. OBJECTIVE: Vital Signs: Temperature 98.6 degrees, pulse rate of 77, respiratory rate 22, blood pressure of 134/94, saturating 94% on room air. General Appearance: Moderately nourished, lying in bed, in no acute distress. HEENT: Pale conjunctivae. Icteric sclerae. Neck: Supple. Abdomen: Distended. No guarding or rebound. Mild discomfort in the periumbilical region. Extremities: No cyanosis, clubbing. Neurologic: Alert. He is actually more awake than yesterday. He is going through alcohol withdrawal. LABS: Hemoglobin and hematocrit are 10.1 and 29.3, white count of 9.31, platelet count of 160,000. INR 1.58, PT of 20, sodium of 137, potassium of 3.7, chloride of 100, bicarbonate of 20, anion gap of 9, BUN of 4, creatinine of 0.6, glucose of 96, calcium of 8.2, total bilirubin of 15.86, AST 95, ALT 46, alkaline phosphatase 113, total protein 6.6, albumin of 2.6. Urine culture is negative. Blood cultures negative after 48 hours, after 5 days from 06/25/2018. Last abdominal x-ray was done on 07/11/2018 which showed no free air, no organomegaly, no bowel obstruction, and no significant constipation. IMPRESSION AND PLAN: 1. Abdominal distention. We will order an ultrasound of the abdomen today. We will also check a KUB today. 2. Constipation. Patient's last bowel movement 2 days ago. We will start him back on lactulose 30 mL p.o. t.i.d. We will hold for more than 3 bowel movements in 24 hours. 3. Anemia. Continue to watch for now and transfuse as needed. He will continue Iron C b.i.d. and multivitamin 1 once daily. 4. Coagulopathy. He will continue on vitamin K 10 mg intravenously once daily for 3 days. 5. Esophageal varices. He will continue on propranolol 10 mg p.o. t.i.d. He had esophageal variceal banding done on admission by Dr. Milton. He will need serial banding in a couple of weeks. 6. Jaundice and decompensated alcoholic liver cirrhosis. Aware. Will continue to watch those labs every day. 7. Delirium tremens. He is on Ativan 2 mg intravenously as needed. 8. We will continue full liquid diet and Ensure with every tray. 9. The above plans were discussed with the patient and family at bedside, and all questions were answered, also with patient's nurse. If the ultrasound shows evidence of ascites, then we may have to do ascitic tap to evaluate for spontaneous bacterial peritonitis. 10. Further recommendations to follow pending the hospital course. Please call us with any questions. cc: MD Hanh Luna MD MTDD
[2018-07-13] MEDS: ATIVAN IV PRN (20:00)
[2018-07-13] MEDS ORDERED: NS 1,000 ML IV SCH (21:02)
[2018-07-14] MEDS: PROTONIX IV SCH ×2 (00:17→10:03)
[2018-07-14 05:21] LABS: INR 1.75; PROTIME 21.8 Seconds (11.0-16.0)
[2018-07-14 05:35] LABS: HEMATOCRIT 25.9 % (42.0-52.0); HEMOGLOBIN 9.1 g/dL (14.0-18.0); MCH 32.6 PG (27-31); MCHC 35.1 g/dL (33-37); MCV 92.8 FL (81-99); MPV 11.1 FL (7.4-10.4); RBC 2.79 XMIL (4.7-6.1); RDW 18.3 % (11.5-14.5); WBC 11.27 X1000 (4.8-10.8)
[2018-07-14 06:28] LABS: AGAP 7; ALB/GLOB RATIO 0.7; ALBUMIN 2.5 g/dL (3.5-5.0); ALKALINE PHOSPHATASE 102 U/L (32-122); BUN 7 mg/dL (8-22); CALCIUM 7.8 mg/dL (8.8-10.2); CHLORIDE 109 mmol/L (98-107); COSMO 270; CREATININE 0.6 mg/dL (0.7-1.2); ESTIMATED GFR > 60; GLUCOSE 104 mg/dL (70-104); GOT 85 U/L (10-34); GPT 43 U/L (10-44); POTASSIUM 3.9 mmol/L (3.5-5.1); SODIUM 136 mmol/L (136-145); TCO2 20 mmol/L (25-35); TOTAL BILIRUBIN 15.73 mg/dL (0.20-1.00)
[2018-07-14] MEDS: M.V.I.-12 10 ML, FOLIC ACID 1 MG, MAGNESIUM SULFATE 1 GM, THIAMINE 100 MG in NS 1,000 ML IV SCH (07:59)
[2018-07-14] MEDS: CENTRUM SILVER PO SCH (08:18)
[2018-07-14] MEDS: ICAR-C PO SCH ×2 (08:19→22:48)
[2018-07-14] MEDS: LACTULOSE PO SCH ×3 (08:19→17:51)
[2018-07-14] MEDS: INDERAL PO SCH ×3 (08:19→17:51)
[2018-07-14] MEDS: NORVASC PO SCH (08:19)
[2018-07-14] MEDS: MORPHINE IV PRN ×2 (09:03→14:44)
[2018-07-14] MEDS ORDERED: CLINIMIX E 4.25%-5% SOLUTION 1,000 ML IV SCH ×2 (09:45→10:00)
[2018-07-14] MEDS ORDERED: LASIX IV SCH (09:45)
[2018-07-14] MEDS: SODIUM CHLORIDE 0.9% INJ SCH (10:04)
[2018-07-14 10:51] LABS: URINE SOURCE CATH
[2018-07-14 10:58] LABS: UR EPITHELIAL CELLS <10 /HPF (<10); URINE BACTERIA NEGATIVE /HPF; URINE RBC TNTC /HPF (<10); URINE WBC <10 /HPF (<10)
[2018-07-14 11:04] LABS: BILIRUBIN URINE LARGE (NEGATIVE); BLOOD URINE LARGE (NEGATIVE); COLOR YELLOW; GLUCOSE URINE NEGATIVE (NEGATIVE); KETONE URINE NEGATIVE (NEGATIVE); LEUKOCYTES URINE MODERATE (NEGATIVE); NITRITE URINE NEGATIVE (NEGATIVE); PROTEIN URINE TRACE mg/dL (NEGATIVE); SP GRAVITY URINE 1.014; TURBIDITY URINE HAZY (CLEAR); UROBILINOGEN URINE 4 mg/dL (NORMAL)
[2018-07-14] MEDS ORDERED: ROCEPHIN 1 GM in NS 50 ML IV SCH (12:00)
[2018-07-14] MEDS: TRENTAL PO SCH ×2 (12:39→17:52)
--- NOTE | 2018-07-14 13:30 | PROGRESS NOTE ---
DATE: 07/14/2018 SUBJECTIVE: The patient is lethargic this morning. He received Ativan last night at around 8 p.m. due to agitation. OBJECTIVE: Vital Signs: Temperature 98 degrees, blood pressure 90/68, heart rate 78, respirations 14, O2 saturation is 99% on 2 L nasal cannula. Intake and output: Intake 3.7 L. Output 910. General: This is a chronically ill-appearing middle-aged male, lying in bed in no acute distress. Head: Normocephalic, atraumatic. Heart: S1, S2 normal, regular rate and rhythm. Lungs: Equal air entry bilaterally. No wheezing. No rales. No rhonchi. Abdomen: Positive bowel sounds. Soft but distended. Extremities: No edema. No cyanosis. No calf tenderness. Neurologic: The patient is currently lethargic. He is able to move all 4 extremities. LABORATORY DATA: White blood cell count 11, hemoglobin 9.1, hematocrit 25, platelets 200,000. INR 1.7. Sodium 136, potassium 3.9, chloride 109, CO2 of 20, BUN 7, creatinine 0.6, glucose 104, total bilirubin 15, AST 85, ALT 43, alkaline phosphatase 102, albumin 2.5. ASSESSMENT AND PLAN: 1. Gastrointestinal bleed secondary to a variceal bleed status post banding. Stable. 2. Decompensated alcoholic liver cirrhosis. The patient's bilirubin remains elevated. We will continue with supportive care as directed by Gastroenterology. 3. Acute alcohol withdrawal. We will continue to monitor the patient closely. We will try to use a lower dose of Ativan for agitation. 4. Coagulopathy. The patient is on vitamin K. We will continue to monitor the coagulation profile closely. 5. Anemia. The patient's hemoglobin and hematocrit have dropped a little bit. We will continue to monitor this closely. 6. Nutrition. The patient has been started on Clinimix. 7. Ascites. The patient is scheduled to undergo a paracentesis today. Continue Rocephin. DISPOSITION: I had a discussion with the patient's mother and , and they have requested transfer to [facility] or [place]. I called both medical facilities, and they are currently on ICU diversion. We will continue to try and facilitate transfer again tomorrow. cc: MD MAXIMILIANO Calderon
[2018-07-14] MEDS: VITAMIN K 10 MG in NS 50 ML IV SCH (13:59)
--- NOTE | 2018-07-14 14:56 | GASTROENTEROLOGY PROGRESS NOTE ---
DATE: 07/14/2018 SUBJECTIVE: Patient is resting in bed. He is drowsy. He wakes up to commands and answers some questions but it is difficult to understand. I spoke to the patient's and her mother at bedside. We discussed the current scenario where he is currently in decompensated alcoholic cirrhosis. Despite our attempts his bilirubin is getting worse. His oral intake has gotten poor. He has developed new onset ascites and is getting coagulopathic despite being on vitamin K. He is initially scheduled for paracentesis today by Radiology but because of coagulopathy, it has been postponed. Will try to give him 2 units of FFP today and hopefully he can get paracentesis today or early tomorrow morning. I have discussed with the nursing staff. I have also spoken to Dr. Donahue as well. OBJECTIVE: Vital signs: Temperature of 98.8 degrees, pulse rate of 76, respiratory rate of 12, blood pressure of 97/74, saturating 98% on nasal cannula 2 L. Body weight of 174 pounds 1.6 ounces, BMI of 25.7 kg/m2. General appearance: Moderately built, moderately nourished, lying in bed, currently drowsy. HEENT: Positive pallor. Positive icterus. Nasal cannula in place. Neck: Supple. Abdomen: Distended. Positive ascites. No guarding. No rebound. Extremities: No cyanosis, clubbing. Neurologic: He is drowsy. He was trying to wake up on commands. He was still very drowsy. It is difficult to understand him. He was trying to answer some simple questions. He was able to tell me his name and the name of the city. LABS: His hemoglobin and hematocrit are 9.1 and 25.9, white count 11.27, platelet count of 200,000. INR 1.75, PT of 21.8. Sodium 136, potassium 3.9, chloride 109, bicarb 20, anion gap 7, BUN of 7, creatinine 0.6, glucose of 104, calcium is 7.8, total bilirubin is 15.73, AST 85, ALT 43, alkaline phosphatase 102, total protein is 6, albumin 2.5. Urinalysis is showing trace protein, large amount of blood, large bilirubin, moderate white cells, and moderate red cells. We will order a urine culture. Abdominal x-ray done yesterday showed no constipation. Ultrasound showed interval increase in small to moderate amount of ascites. The liver is measuring 19 cm. There is fatty infiltration. The pancreas is predominantly obscured. The spleen measures 15.7 cm in length. There is sludge in the gallbladder. IMPRESSION AND PLAN: 1. Decompensated alcoholic cirrhosis, likely secondary to alcohol. His bilirubin has plateaued. We are hoping that it can start to trend down. We will continue with conservative management and supportive care. 2. Fluid overload. We will discontinue the fluids. We will switch him to Clinimix at 50 mL/hour. We will start him on Lasix at 20 mg IV once daily and Aldactone 50 mg daily. 3. Worsening ascites. We will need ascitic tap. We will give him 2 units of FFP today and try to get a paracentesis done today or tomorrow per the Radiologist. We need to send the fluid studies to evaluate for SBP. 4. Alcoholic hepatitis: We will start him on pentoxifylline 400 mg t.i.d. 5. Urinary tract infection. We will send a urine culture. This will be managed per the Primary Care Team. We will start him on ceftriaxone as he has a possible UTI. We will give him the first dose today. UTI will be managed by the Primary Care Team. 6. Hepatic encephalopathy. His ammonia level was normal but he is drowsy. This could be secondary to Ativan and morphine, so I have spoken with Dr. Donahue to reduce the dose of morphine and Ativan to as low as possible. I will start him on lactulose 30 mL p.o. t.i.d. and Xifaxan 50 mg p.o. b.i.d. 7. Coagulopathy. Will keep him on vitamin K 10 mg IV once daily for 3 days. Last dose will be today. 8. Anemia. Start on iron C b.i.d. and multivitamin once daily. 9. Malnutrition. We will start him on Clinimix at 50 mL/hour. He has a poor oral intake. 10. Bleeding esophageal varices, status post banding, done by Dr. Milton. We will continue on propranolol 10 g p.o. t.i.d. but hold for heart rate less than 55 beats per minute and/or systolic blood pressure less than 100 mmHg. 11. Disposition. The patient and family are interested in possible transfer to [facility]. I have discussed that with the patient's hospitalist, Dr. Donahue. She will try to mediate the transfer if possible. 12. Delirium tremens. He is on Ativan as needed. 13. We will follow along. The above plan of care was discussed with the patient's family at bedside and all questions were answered. Please call us with any further questions. cc: MD Hanh Luna MD UNITED HEALTH SERVICESValorie
--- NOTE | 2018-07-14 16:30 | Diag Imaging Result Doc PS360 ---
EXAM: US ABD PARACENTESIS W S/I 07/14/2018 HISTORY: ascites, liver cirrhosis, abdominal distension TECHNIQUE: Ultrasound-guided paracentesis. COMMENT: Consent was previously obtained from the patient's . Following sterile preparation of the skin laterally over the right upper quadrant and administration of 1% lidocaine to the skin and deeper soft tissues, a 20-gauge spinal needle was advanced under ultrasonographic control into the small pocket of fluid between the abdominal wall in the liver. 60 mL was aspirated and sent to the laboratory. Aspiration with the spinal needle was performed due to the fairly low volume of ascites present, as was previously the case on 07/13/2018. IMPRESSION: Successful ultrasound-guided paracentesis. Electronically signed by Herrera Tejeda 07/14/2018 4:27 PM
[2018-07-14 18:33] LABS: TOTAL PROT BODY FLUID 0.7 g/dL
[2018-07-14 18:41] LABS: ALBUMIN BODY FLUID 0.3 g/dL
[2018-07-14 18:49] LABS: BODY FLUID SOURCE PERITONEAL FLUID; WBC BF 74 /cumm
[2018-07-14 18:50] LABS: MONOS 97 %; POLYS 3 %
[2018-07-14] MEDS ORDERED: ATIVAN IV PRN (18:52)
[2018-07-14 20:08] LABS: INR 1.64; PROTIME 20.7 Seconds (11.0-16.0)
[2018-07-14 20:09] LABS: PTT 41.1 Seconds (22.3-41.8)
[2018-07-14 20:12] LABS: BASO# 0.09 X1000 (0.0-0.2); BASO% 0.6 % (0.0-0.8); EOS# 0.19 X1000 (0.0-0.7); EOS% 1.4 % (0.0-10.0); HEMATOCRIT 22.5 % (42.0-52.0); HEMOGLOBIN 7.6 g/dL (14.0-18.0); IMM GRAN# 0.04 X1000 (0.0-0.04); IMM GRAN% 0.3 % (0.0-0.5); LYMPH# 2.23 X1000 (1.2-3.4); LYMPH% 16.1 % (20.5-51.1); MCH 31.7 PG (27-31); MCHC 33.8 g/dL (33-37); MCV 93.8 FL (81-99); MONO# 1.14 X1000 (0.11-0.59); MONO% 8.2 % (1.7-9.3); MPV 10.7 FL (7.4-10.4); NEUT# 10.16 X1000 (1.4-6.5); NEUT% 73.4 % (42.2-75.2); PLT 192 X1000 (130-400); RDW 18.4 % (11.5-14.5); WBC 13.85 X1000 (4.8-10.8)
[2018-07-14] MEDS ORDERED: SANDOSTATIN 500 MICROGM in D5W 100 ML IV SCH (20:30)
[2018-07-14 20:48] LABS: AGAP 9; ALB/GLOB RATIO 0.8; ALBUMIN 2.8 g/dL (3.5-5.0); ALKALINE PHOSPHATASE 114 U/L (32-122); BUN 11 mg/dL (8-22); CALCIUM 8.5 mg/dL (8.8-10.2); CHLORIDE 108 mmol/L (98-107); COSMO 279; CREATININE 0.6 mg/dL (0.7-1.2); ESTIMATED GFR > 60; GLUCOSE 109 mg/dL (70-104); GOT 85 U/L (10-34); GPT 42 U/L (10-44); POTASSIUM 4.3 mmol/L (3.5-5.1); SODIUM 140 mmol/L (136-145); TCO2 23 mmol/L (25-35); TOTAL BILIRUBIN 13.49 mg/dL (0.20-1.00); TOTAL PROTEIN 6.4 g/dL (6.3-8.3)
[2018-07-14] MEDS ORDERED: DIPRIVAN 1% ONE (20:55)
[2018-07-14] MEDS ORDERED: XYLOCAINE-MPF 2% ONE (20:56)
[2018-07-14] MEDS ORDERED: QUELICIN (DOSE) ONE (20:56)
[2018-07-14] MEDS ORDERED: XIFAXAN PO SCH (21:00)
[2018-07-14] MEDS ORDERED: PROTONIX 80 MG in NS 80 ML IV SCH (21:00)
[2018-07-14] MEDS ORDERED: VERSED ONE (22:14)
[2018-07-14] MEDS ORDERED: DIPRIVAN 1% 1,000 MG/100 ML BOTTLE IV SCH (22:15)
[2018-07-14] MEDS ORDERED: VITAMIN K 10 MG in NS 50 ML IV ONE (22:36)
[2018-07-14] MEDS ORDERED: ROCEPHIN 2 GM in NS 50 ML IV SCH (22:45)
[2018-07-14] MEDS ORDERED: FLAGYL 500 MG/NS 500 MG/100 ML IVPB IV SCH (22:45)
[2018-07-14 22:54] LABS: BASO# 0.09 X1000 (0.0-0.2); BASO% 0.5 % (0.0-0.8); EOS# 0.24 X1000 (0.0-0.7); EOS% 1.4 % (0.0-10.0); HEMATOCRIT 23.8 % (42.0-52.0); HEMOGLOBIN 7.9 g/dL (14.0-18.0); IMM GRAN# 0.05 X1000 (0.0-0.04); IMM GRAN% 0.3 % (0.0-0.5); LYMPH# 1.76 X1000 (1.2-3.4); LYMPH% 10.3 % (20.5-51.1); MCH 31.6 PG (27-31); MCHC 33.2 g/dL (33-37); MCV 95.2 FL (81-99); MONO# 1.12 X1000 (0.11-0.59); MONO% 6.6 % (1.7-9.3); MPV 10.8 FL (7.4-10.4); NEUT# 13.81 X1000 (1.4-6.5); NEUT% 80.9 % (42.2-75.2); PLT 189 X1000 (130-400); RDW 17.5 % (11.5-14.5); WBC 17.07 X1000 (4.8-10.8)
[2018-07-14 22:55] LABS: ALLEN TEST YES; BE -1.2 mmoll (-3.0-3.0); BLOOD TYPE ARTERIAL; HCO3-(ACT) 23.8 mmoll (20.0-26.0); O2(CT) 9.2 mL/dL (15.0-23.0); PCO2(98.6) 38 mmHg (35-45); SAMPLE BLOOD; SAO2 88.9 % (95.0-100.0); SRATE 12 BPM; THB 7.6 g/dL (11.5-17.4); TVOL 750 mL
[2018-07-14 22:58] LABS: INR 1.51; PROTIME 19.4 Seconds (11.0-16.0)
[2018-07-14 22:58] LABS: PO2(98.6) 41 mmHg (60-100)
[2018-07-14 22:59] LABS: MODALITY VENTILATOR; O2HB 85.7 % (95.0-99.0)
[2018-07-14 23:04] LABS: PTT HEPARIN PROTOCOL 40.8 Seconds
[2018-07-14 23:09] LABS: AGAP 10; ALKALINE PHOSPHATASE 97 U/L (32-122); BUN 13 mg/dL (8-22); CALCIUM 8.1 mg/dL (8.8-10.2); CHLORIDE 107 mmol/L (98-107); COSMO 278; CREATININE 0.8 mg/dL (0.7-1.2); ESTIMATED GFR > 60; GLUCOSE 101 mg/dL (70-104); GOT 79 U/L (10-34); GPT 39 U/L (10-44); POTASSIUM 4.2 mmol/L (3.5-5.1); SODIUM 139 mmol/L (136-145); TCO2 22 mmol/L (25-35); TOTAL BILIRUBIN 11.82 mg/dL (0.20-1.00); TOTAL PROTEIN 5.8 g/dL (6.3-8.3)
[2018-07-14 23:40] LABS: ALBUMIN 2.7 g/dL (3.5-5.0)
[2018-07-14 23:47] LABS: ALB/GLOB RATIO 0.8
[2018-07-15] MEDS ORDERED: LASIX IV ONE (00:29)
--- NOTE | 2018-07-15 00:42 | OPERATIVE NOTE ---
PROCEDURE DATE: 07/14/2018 PROCEDURES PERFORMED: Esophagogastroduodenoscopy with variceal banding of esophageal varices. PREOPERATIVE DIAGNOSES: 1. Hematemesis started later in the evening. 2. Decompensated alcoholic liver cirrhosis complicated with coagulopathy, anasarca, anemia, jaundice. POSTOPERATIVE DIAGNOSES: 1. Blood throughout the esophagus which was suctioned out. There was evidence of esophageal varices, and there was evidence of one remnant band in the distal esophagus from prior EGD by Dr. Milton. There was evidence of ulcerations from a prior banding. 2. Evidence of blood in the entire stomach, which we were only able to partly clear. We could not completely clear the fundus and the cardia. 3. Normal duodenal bulb and second portion of duodenum. 4. Normal incisura on retroflexion. 5. Three bands were placed in the distal esophagus, which slowed down the bleeding. ESTIMATED BLOOD LOSS: approximately 650 mL which was seen in the suction canister and in the suction tubing from the oropharynx. COMPLICATIONS: None. ANESTHESIA: General anesthesia. He was intubated for airway protection. SPECIMENS: None. DESCRIPTION OF PROCEDURE: After informed consent of the patient's family, I explained the risks, benefits, indications and alternatives to the procedure. The patient was prepared for EGD. The risks of the procedure including infection, bleeding, pain, trauma to the surrounding structures, perforation and were explained to the patient's family among others, and they acknowledged this and agreed to proceed with the above. The patient was brought to the OR, he was turned in the supine position. He underwent general anesthesia. He was intubated for airway protection. He was then turned to the left lateral position. A bite block was placed in the patient's mouth. The upper scope was introduced through the oral orifice, we visualized blood all the way in the oropharynx ad we started sucking it out, we even saw the blood coming out from the nasopharynx and through the nostrils, we suctioned it out. The esophagus was full of blood and blood clots, we gently maneuvered and suctioned out as much blood and clots as possible. We were able to make our way down to the stomach which was again full of blood and clots, this was suctioned out. We were able to suction and evacuate part of the stomach, body and antrum. We, were able to intubate the pylorus and the duodenum which showed normal duodenal bulb and second portion of duodenum. I withdrew the scope into the stomach and retroflexion revealed normal incisura. There was evidence of blood in the body, fundus and cardia on retroflexion, which we could not completely clear. We identified the GE junction and started noticing blood in the distal esophagus. We identified one site of ulceration in the distal esophagus likely from recent variceal banding. There was another site we identified which had a band intact. There was diffuse oozing throughout the distal esophagus, we placed 3 bands at the distal esophagus. We were able to slow down bleeding. The air was aspirated and the scope withdrawn. The patient was given 2 units of FFP before the procedure, and he was given 1 unit of blood during the procedure, and he was receiving a second unit of blood at the end of the procedure. The patient tolerated the procedure and is currently in the OR being monitored by the anesthesiologist. I called the primary care team and I spoke to the hospitalist and the nurse practitioner in the OR. We then went and spoke to the patient's mother, and the rest of the family in the waiting area. We explained all the findings to the patient's family, and all questions were answered. RECOMMENDATIONS: 1. The patient will have serial blood counts and transfuse to keep the hematocrit around 23%. 2. We will keep him on octreotide drip at 50 mcg/h. 3. We will give the patient a Protonix drip at 10 mL/h. We will continue to check serial labs. We will try to transfer the patient to [facility] for TIPS procedure as the patient has recurrent variceal bleeding and he has decompensated liver cirrhosis. 4. The patient is critical because of the decompensated liver cirrhosis and recurrent GI bleeding. I have discussed that with the patient's family in detail and all questions were answered. We will follow along. Please call us with any further questions. Thank you for allowing us to participate in the care of this patient. cc: MD Garrick Luna MD MTDD
[2018-07-15 02:23] VITALS: BP 97/64
--- NOTE | 2018-07-15 08:36 | Diag Imaging Result Doc PS360 ---
EXAM: CHEST-PORTABLE INDICATION: Post-Intubation TECHNIQUE: One view COMPARISON: 07/09/2018 FINDINGS: The newly placed ET tube tip projects over the right mainstem bronchus. Retraction of about 3 to 4 cm its recommended along with a repeat chest radiograph. Inspiration is suboptimal. There is increased opacity at the left lung base as compared to the previous study suggesting an effusion with adjacent atelectasis and/or infiltrate. There is some degree of mild pulmonary venous congestion. There is stable cardiomegaly. IMPRESSION: 1.Malpositioned ET tube with the tip projecting over the right mainstem bronchus. Please see above discussion. 2.Left basilar opacity suggesting pleural effusion with adjacent atelectasis and/or infiltrate. Electronically signed by Justin Mera 07/15/2018 8:34 AM
[2018-07-15] MEDS ORDERED: ALDACTONE PO SCH (09:00)
[2018-07-17] MEDS ORDERED: PROTONIX IV SCH (19:44)
--- NOTE | 2018-08-04 11:20 | DISCHARGE SUMMARY ---
ADMISSION DATE: 07/03/2018 DISCHARGE DATE: 07/15/2018 FINAL DISCHARGE DIAGNOSES: 1. Acute hypoxemic respiratory failure. 2. Upper gastrointestinal bleed secondary to esophageal variceal bleed status post banding x2. 3. Anemia of acute blood loss. 4. Acute decompensated alcoholic liver cirrhosis. 5. Acute alcohol withdrawal with delirium tremens. 6. Coagulopathy. 7. Anasarca. 8. Anemia. 9. Hypertension. 10. Ascites. CONSULTATIONS REQUESTED DURING THIS HOSPITAL STAY: GI consultation with Dr. Garcia. PROCEDURES: 1. EGD performed on 07/04/2018 at which time grade 3 four esophageal varices were found in the distal esophagus. Four bands were deployed to treat esophageal the varices. Portal hypertensive gastropathy. 2. EGD performed on 07/14/2018, which revealed esophageal varices that were bleeding 3. Three bands were placed in the distal esophagus. IMAGIN. Portable chest x-ray performed on 07/03/2018 that revealed no acute disease. 2. Abdominal ultrasound which revealed sludge in the gallbladder with mild wall thickening. 3. Fatty infiltration of the liver. Splenomegaly. HOSPITAL COURSE: Mr. Costello is a 48-year-old male with a history of alcoholic liver cirrhosis and heavy alcohol dependence who presented to the ER with hematemesis. The patient was admitted to the hospitalist service. On admission, the patient was noted to have a hemoglobin of 7.1 with hematocrit of 20. Also, the patient was noted to be coagulopathic with an INR of 1.97. The patient received 2 units of FFP, and also a dose of vitamin K as well as blood was typed and crossed to be given. The patient was admitted to the medical ICU and GI was consulted. The patient was also started on Protonix drip and the octreotide drip. The patient was taken to the endoscopy suite on 07/04, and an EGD was performed at which time the patient was noted to have four columns of grade 3 4 esophageal varices in the distal esophagus. Four bands were deployed to treat the esophageal varices without any bleeding noted at the end of the procedure. Also, the patient was noted to have a small hiatal hernia. The patient was then transferred back to the ICU for close monitoring. Over the course of the hospitalization, the patient's mental status declined, and he was noted to be in alcohol withdrawal. The patient's alcohol withdrawal was treated with as needed Ativan. The patient also developed ascites as the hospitalization progressed. The patient remained coagulopathic with an INR ranging from about 1.5 to 1.6. The case was discussed with the patient's family, and they requested transfer to either [facility] or [place]. Calls were made to both medical facilities however. There were no beds available for the patient to be transferred at the time of the request. On 07/14/2018, the patient started having hematemesis. The patient was rushed to the endoscopy suite, and then an EGD was done that revealed bleeding from the distal esophagus. Three bands were placed in the distal esophagus which slowed down the bleeding. The patient remained intubated for airway protection. The case was discussed with the on-call interventionalist at [facility]. The patient was accepted for transfer to [facility] for further treatment and intervention. cc: Hanh Donahue MD
== END 2018-07-15 01:30 | disposition short-term general hospital (02) | DRG 432 ==
LOC: P.ED 09:13 → SUATTDRO 11:09 → ICU 11:09 → 3S 07-05 02:38 → ICU 07-06 13:50
PROVIDERS: ATTEND Internal Medicine
CPT/HCPCS: 36430; 49083; 71010; 71045; 74000; 74018; 74019; 74020; 76700; 80053; 80074; 80101; 80301; 80307; 80320; 80324; 80345; 80346; 80353; 80358; 80361; 80365; 81001; 82042; 82055; 82140; 82805; 83605; 83690; 83735; 83880; 83992; 84100; 84145; 84157; 85014; 85018; 85025; 85027; 85610; 85651; 85730; 86701; 86850; 86900; 86901; 86920; 87040; 87070; 87075; 87088; 87389; 87901; 88112; 89051; 93005; 96361; 96365; 96366; 96368; 96375; 99285; A9270; C9113; G0431; G0434; G0479; G0480; G6040; J0330; J0360; J0610; J0696; J1200; J1940; J2060; J2250; J2270; J2354; J2405; J2560; J3010; J3411; J3430; J3475; J3480; J7030; J7050; J7060; J7120; P9016; P9017; S0030; S0164